=== PATIENT | female | born 1950 | race Caucasian/White ===

== ENCOUNTER 2016-07-20 12:16 | Outpatient (CLI) | payer MEDICARE, MEDICAID | END 2016-07-20 12:17 | disposition home or self-care (01) | DX: M19.071 Primary osteoarthritis, right ankle and foot (principal) ==

== ENCOUNTER 2017-03-14 08:00 | Outpatient (CLI) | payer MEDICARE, MEDICAID | END 2017-03-14 08:01 | disposition home or self-care (01) | LOC: LAB.N 08:00 | PROVIDERS: ATTEND Nurse Practitioner Gerontology | DX: N39.0 Urinary tract infection, site not specified (principal) | CPT/HCPCS: 87086 ==

== ENCOUNTER 2017-05-13 09:37 | Outpatient (CLI) | payer MEDICARE, MEDICAID ==
--- NOTE | 2017-05-13 12:43 | XRAY Report ---
LEFT HIP AND PELVIS: 05/13/2017 COMPARISON: None. INDICATION: Hip pain. TECHNIQUE: Two views of the left hip and pelvis. FINDINGS: There are surgical clips about the pelvis. There are mild hypertrophic changes of the hips without significant joint space narrowing. Normal alignment. No evidence of acute fracture. IMPRESSION: MILD BILATERAL HIP OSTEOARTHRITIS. JOB #: [id number] EXT JOB #: [id number] [facility]
== END 2017-05-13 09:38 | disposition home or self-care (01) ==
LOC: DI.N 09:37
PROVIDERS: ATTEND Nurse Practitioner Gerontology
DX: M16.11 Unilateral primary osteoarthritis, right hip (principal)

== ENCOUNTER 2017-09-30 08:28 | Outpatient (CLI) | payer MEDICARE, MEDICAID ==
[2017-09-30 13:23] LABS: BASOPHILS % (AUTO) 0.7 %; EOSINOPHILS # (AUTO) 0.1 10^3/uL (0.0-0.7); EOSINOPHILS % (AUTO) 1.3 %; LYMPHOCYTES # (AUTO) 1.8 10^3/uL (1.5-3.5); LYMPHOCYTES % (AUTO) 37.4 %; MEAN CORPUSCULAR HEMOGLOBIN 28.3 pg (27.0-31.0); MEAN CORPUSCULAR HGB CONC 33.7 g/dL (32.0-36.0); MEAN PLATELET VOLUME 8.7 fL (7.9-10.8); MONOCYTES # (AUTO) 0.3 10^3/uL (0.0-1.0); MONOCYTES % (AUTO) 6.1 %; NEUTROPHILS # (AUTO) 2.6 10^3/uL (1.5-6.6); NEUTROPHILS % (AUTO) 54.5 %; PLT - PLATELET COUNT 224 10^3/uL (130-450); RED BLOOD COUNT 4.24 10^6/uL (4.20-5.40); RED CELL DISTRIBUTION WIDTH 14.3 % (12.0-15.0); WHITE BLOOD COUNT 4.7 x10^3/uL (4.8-10.8)
[2017-09-30 13:49] LABS: ALBUMIN 4.1 g/dL (3.2-5.5); ALBUMIN/GLOBULIN RATIO 1.3 (1.0-2.2); ALKALINE PHOSPHATASE 73 IU/L (42-121); ALT ALANINE AMINOTRANSFERASE 17 IU/L (10-60); AST ASPARTATE AMINOTRANSFERASE 21 IU/L (10-42); BILIRUBIN,TOTAL 0.3 mg/dL (0.2-1.0); BUN - BLOOD UREA NITROGEN 13 mg/dL (6-20); CALCIUM 8.7 mg/dL (8.5-10.3); CARBON DIOXIDE - CO2 27 mmol/L (21-32); CHLORIDE 103 mmol/L (101-111); CHOL/HDL RATIO 3.2 (<4.4); CHOLESTEROL 167 mg/dL; CREATININE 0.7 mg/dL (0.4-1.0); GFR - MDRD 84 (>89); GLUCOSE 104 mg/dL (70-100); HDL CHOLESTEROL 53 mg/dL; LDL CHOLESTEROL,CALCULATED 85 mg/dL; LDL/HDL RATIO 1.6 (<4.4); SODIUM 138 mmol/L (135-145); TOTAL PROTEIN 7.2 g/dL (6.7-8.2); VLDL CHOLESTEROL 29 mg/dL
== END 2017-09-30 08:29 | disposition home or self-care (01) ==
LOC: LAB.N 08:28
PROVIDERS: ATTEND Nurse Practitioner Gerontology
DX: R03.0 Elevated blood-pressure reading, without diagnosis of hypertension (principal); E78.5 Hyperlipidemia, unspecified
CPT/HCPCS: 36415; 80053; 80061; 83721; 85025

== ENCOUNTER 2017-11-02 16:00 | Outpatient (CLI) | payer MEDICARE, MEDICAID ==
[2017-11-02 18:49] LABS: BILIRUBIN,URINE NEGATIVE (NEGATIVE); GLUCOSE, URINE (UA) NEGATIVE (NEGATIVE); KETONES,URINE (UA) NEGATIVE (NEGATIVE); LEUKOCYTE ESTERASE, URINE SMALL (NEGATIVE); NITRITE,URINE NEGATIVE (NEGATIVE); OCCULT BLOOD,URINE SMALL (NEGATIVE); PROTEIN,URINE NEGATIVE (NEGATIVE); UROBILINOGEN,URINE 0.2 (NORMAL) E.U./dL (NORMAL)
[2017-11-02 19:01] LABS: BACTERIA,URINE Moderate /HPF (None Seen); CLARITY,URINE CLEAR (CLEAR); RBC,URINE 0-5 /HPF (0-5); SQUAMOUS EPITHELIAL CELL,UR FEW Squamous (<= Few)
== END 2017-11-02 16:01 | disposition home or self-care (01) ==
LOC: LAB.R 16:00
PROVIDERS: ATTEND Physician Assistant Medical
DX: N39.0 Urinary tract infection, site not specified (principal); R30.0 Dysuria
CPT/HCPCS: 81001; 87086

== ENCOUNTER 2018-01-05 23:51 | Outpatient (CLI) | payer MEDICARE, MEDICAID ==
[2018-01-05 18:54] LABS: BILIRUBIN,URINE NEGATIVE (NEGATIVE); GLUCOSE, URINE (UA) NEGATIVE (NEGATIVE); KETONES,URINE (UA) TRACE mg/dL (NEGATIVE); LEUKOCYTE ESTERASE, URINE MODERATE (NEGATIVE); NITRITE,URINE NEGATIVE (NEGATIVE); OCCULT BLOOD,URINE MODERATE (NEGATIVE); PH,URINE 5.5 PH (5.0-7.5); PROTEIN,URINE 100 mg/dL (NEGATIVE); UROBILINOGEN,URINE 0.2 (NORMAL) E.U./dL (NORMAL)
[2018-01-05 19:18] LABS: AMORPHOUS SEDIMENT,UR Few /LPF; BACTERIA,URINE Few /HPF (None Seen); CLARITY,URINE CLOUDY (CLEAR); SQUAMOUS EPITHELIAL CELL,UR NONE SEEN (<= Few); WBC CLUMPS,URINE PRESENT
== END 2018-01-05 23:52 | disposition home or self-care (01) ==
LOC: LAB.R 23:51
PROVIDERS: ATTEND Physician Assistant Medical
DX: N30.00 Acute cystitis without hematuria (principal); R30.0 Dysuria
CPT/HCPCS: 81001; 87086; 87181

== ENCOUNTER 2018-08-14 10:01 | Outpatient (CLI) | payer MEDICARE, MEDICAID ==
--- NOTE | 2018-08-15 09:20 | Mammography Report ---
Reason: MAMMOGRAM NOT HIGH RISK SCREENING Procedure Date: 08/14/2018 Accession Number: [id number] / [id number] Procedure: MGN - Screening Mammo Dig Bilat CPT Code: FULL RESULT: EXAM: Screening Mammo Dig Bilat DATE: 08/14/2018 10:26 AM CLINICAL HISTORY: Routine screening. No reported personal or family history of breast cancer. TECHNIQUE: Bilateral CC and MLO views were obtained. COMPARISON: 03/08/2012 through 02/24/2007 FINDINGS: The breasts demonstrate scattered fibroglandular densities bilaterally. Bilateral breasts: There are no suspicious masses, calcifications or areas of distortion. IMPRESSION: Negative examination RECOMMENDATION: Routine annual screening unless otherwise clinically indicated. BI-RADS CATEGORY 1: Negative STANDARD QUALIFYING STATEMENTS: 1. This examination was reviewed with the aid of Computer-Aided Detection (CAD). 2. A negative or benign imaging report should not preclude biopsy if clinically suspicious findings are present. 3. Dense breasts may obscure an underlying neoplasm. 4. This examination was reviewed without the aid of 3D breast imaging (tomosynthesis).
== END 2018-08-14 10:02 | disposition home or self-care (01) ==
LOC: DI.N 10:01
PROVIDERS: ATTEND Nurse Practitioner Gerontology
DX: Z12.31 Encounter for screening mammogram for malignant neoplasm of breast (principal)
CPT/HCPCS: 77067

== ENCOUNTER 2018-08-31 09:20 | Outpatient (CLI) | payer MEDICARE, MEDICAID ==
--- NOTE | 2018-08-31 12:18 | XRAY Report ---
Reason: LEFT HIP PAIN Procedure Date: 08/31/2018 Accession Number: [id number] / [id number] Procedure: XRN - Hip w/Pelvis 2-3V LT CPT Code: FULL RESULT: EXAM: LEFT HIP RADIOGRAPHY EXAM DATE: 08/31/2018 09:48 AM. CLINICAL HISTORY: Left hip pain. COMPARISON: HIP W/PELVIS 2-3V LT 05/13/2017 9:51 AM. TECHNIQUE: 2 views. FINDINGS: Bones: Normal. No fractures or bone lesion. Joints: No dislocation. The hip joint space is moderately narrowed bilaterally, relatively symmetric. Soft Tissues: Surgical clip projecting over the pelvis. IMPRESSION: Degenerative changes. RADIA
== END 2018-08-31 09:21 | disposition home or self-care (01) ==
LOC: DI.N 09:20
PROVIDERS: ATTEND Nurse Practitioner Gerontology
DX: M16.12 Unilateral primary osteoarthritis, left hip (principal)

== ENCOUNTER 2018-11-08 16:25 | Outpatient (CLI) | payer MEDICARE, MEDICAID ==
--- NOTE | 2018-11-09 11:11 | XRAY Report ---
Reason: FOOT JOINT PAIN,RT Procedure Date: 11/08/2018 Accession Number: [id number] / [id number] Procedure: XRN - Foot 3 View RT CPT Code: FULL RESULT: EXAM: RIGHT FOOT RADIOGRAPHY EXAM DATE: 11/08/2018 04:38 PM. CLINICAL HISTORY: Foot joint pain, right. COMPARISON: FOOT 3 VIEW RT 07/20/2016 12:50 PM. TECHNIQUE: 3 views. FINDINGS: Bones: There is mild posterior and inferior calcaneal spurring. The posterior calcaneal spurring has increased with the prior. There is new irregularity involving the articular surface of the distal aspect of the proximal phalanx concerning for fracture. The bones are qualitatively osteopenic; this limits evaluation for underlying fractures or masses. Joints: Normal. No subluxations. Soft Tissues: Normal. No soft tissue swelling. IMPRESSION: First ray phalangeal fracture as described. RADIA The call report notification system was initiated by Dr. Luís Medina at 11:05 AM on 11/09/2018. ADDENDUM: 11/09/18 11:21 hrs. The above call report findings were discussed with Willy Thibodeaux by Dr. Luís Medina at 11:21 AM on 11/09/2018.
== END 2018-11-08 16:26 | disposition home or self-care (01) ==
LOC: DI.N 16:25
PROVIDERS: ATTEND Physician Assistant Medical
DX: S92.911A Unspecified fracture of right toe(s), initial encounter for closed fracture (principal)

== ENCOUNTER 2018-12-26 | Day surgery (SDC) | payer MEDICARE, MEDICAID | END 2018-12-26 22:06 | disposition home or self-care (01) | PROC: 0NSQ04Z Reposition Left Orbit with Internal Fixation Device, Open Approach (ICD-10-PCS; principal; 2018-12-26) | DX: S02.82XB Fracture of other specified skull and facial bones, left side, initial encounter for open fracture (principal); S50.02XA Contusion of left elbow, initial encounter; S60.222A Contusion of left hand, initial encounter; S70.02XA Contusion of left hip, initial encounter; S06.0X0A Concussion without loss of consciousness, initial encounter; S19.9XXA Unspecified injury of neck, initial encounter; S29.9XXA Unspecified injury of thorax, initial encounter; W01.0XXA Fall on same level from slipping, tripping and stumbling without subsequent striking against object, initial encounter; Y93.01 Activity, walking, marching and hiking; Y92.008 Other place in unspecified non-institutional (private) residence as the place of occurrence of the external cause; I10 Essential (primary) hypertension; E78.00 Pure hypercholesterolemia, unspecified; K21.9 Gastro-esophageal reflux disease without esophagitis; Z96.659 Presence of unspecified artificial knee joint; H10.9 Unspecified conjunctivitis; H54.7 Unspecified visual loss; Z79.899 Other long term (current) drug therapy | CPT/HCPCS: 11012; 21406; 36415; 70450; 70486; 71250; 72125; 73080; 73130; 73502; 80053; 83690; 85025; 85610; 90471; 90715; 96365; 96375; 96376; 99285; A9270; J0131; J1170; J7120 ==

== ENCOUNTER 2018-12-26 11:28 | Outpatient (CLI) | payer MEDICARE, MEDICAID | END 2018-12-26 11:29 | disposition critical access hospital (66) | LOC: EMS 11:28 | PROVIDERS: ATTEND Surgery | DX: S01.81XA Laceration without foreign body of other part of head, initial encounter (principal); W10.2XXA Fall (on)(from) incline, initial encounter; Y93.01 Activity, walking, marching and hiking; Y92.481 Parking lot as the place of occurrence of the external cause | CPT/HCPCS: A0425; A0429 ==

== ENCOUNTER 2019-01-12 11:37 | Outpatient (CLI) | payer MEDICARE, MEDICAID ==
--- NOTE | 2019-01-13 17:00 | XRAY Report ---
Reason: L SHOUKDER PAIN Procedure Date: 01/12/2019 Accession Number: [id number] / [id number] Procedure: XRN - Shoulder 3 View LT CPT Code: FULL RESULT: EXAM: LEFT SHOULDER RADIOGRAPHY EXAM DATE: 01/12/2019 11:52 AM. CLINICAL HISTORY: Left shoulder pain after fall. COMPARISON: None. TECHNIQUE: 3 views. FINDINGS: Bones: No acute fracture is demonstrated. Joints: No dislocation or subluxation. There is mild joint space narrowing of the glenohumeral joint with slight spurring inferiorly. There is also joint space narrowing of the acromioclavicular joint with mild-moderate spurring. Soft tissues: No periarticular calcifications. No focal soft tissue swelling. Visualized portions of the lungs are clear. IMPRESSION: 1. No acute osseous or articular abnormality. 2. 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 Mild DJD at the left glenohumeral joint. RADIA
== END 2019-01-12 11:38 | disposition home or self-care (01) ==
LOC: DI.N 11:37
PROVIDERS: ATTEND Family Medicine
DX: M19.012 Primary osteoarthritis, left shoulder (principal)

== ENCOUNTER 2019-01-24 12:43 | Outpatient (CLI) | payer MEDICARE, MEDICAID, OTHER ==
[2019-01-24] MEDS ORDERED: BARIUM SULFATE 148 GM POWDER PO ONE (13:41)
[2019-01-24] MEDS ORDERED: BARIUM SULFATE 176 GM BOTTLE PO ONE (13:42)
--- NOTE | 2019-01-24 16:04 | XRAY Report ---
Reason: DYSPHASIA Procedure Date: 01/24/2019 Accession Number: [id number] / [id number] Procedure: FL - Esophogram CPT Code: FULL RESULT: EXAM: BARIUM ESOPHAGRAM EXAM DATE: 01/24/2019 01:36 PM. CLINICAL HISTORY: Dysphagia. COMPARISONS: None. TECHNIQUE: Routine double contrast esophagram. Fluoroscopy Time: 1 minute 50 seconds. Number of Images: 60. FINDINGS: Swallowing Mechanism: Normal. No tracheal aspiration or penetration. Normal-appearing swallowing mechanics on rapid sequence imaging. Esophageal Motility: Normal peristaltic stripping wave. Mucosa: Normal. No ulcerations or masses. Gastroesophageal Junction: Mild gastroesophageal reflux noted with coughing and Valsalva maneuver involving the distal third and promptly cleared. No significant hiatal hernia. No stricture. Other: None. IMPRESSION: Mild gastroesophageal reflux with maneuvers. Otherwise normal barium swallow. RADIA
== END 2019-01-24 12:44 | disposition home or self-care (01) ==
LOC: DI 12:43
PROVIDERS: ATTEND Surgery
DX: K21.9 Gastro-esophageal reflux disease without esophagitis (principal); R13.10 Dysphagia, unspecified
CPT/HCPCS: 74220; A9270

== ENCOUNTER 2019-02-14 13:48 | Day surgery (SDC) | payer MEDICARE, MEDICAID ==
[2019-02-14] MEDS ORDERED: MIDAZOLAM 2 MG/2 ML VIAL IVP ONE (13:49)
[2019-02-14] MEDS ORDERED: fentaNYL 250 MCG/5 ML VIAL IVP ONE (13:49)
[2019-02-14] MEDS ORDERED: LACTATED RINGERS 1,000 ML IV ONE (14:00)
[2019-02-14] MEDS ORDERED: LIDO GARGLE 30 ML BOTTLE PO ONE (15:20)
[2019-02-14 16:08] VITALS: BP 150/82
== END 2019-02-14 13:49 | disposition home or self-care (01) ==
LOC: SDS 13:48
PROVIDERS: ATTEND Surgery
PROC: 0DB18ZX Excision of Upper Esophagus, Via Natural or Artificial Opening Endoscopic, Diagnostic (ICD-10-PCS; 2019-02-14)
PROC: 0DB38ZX Excision of Lower Esophagus, Via Natural or Artificial Opening Endoscopic, Diagnostic (ICD-10-PCS; principal; 2019-02-14 15:00)
DX: R13.10 Dysphagia, unspecified (principal); R63.4 Abnormal weight loss; I10 Essential (primary) hypertension
CPT/HCPCS: 43239; A9270; J3010; J7120

== ENCOUNTER 2019-08-08 08:00 | Outpatient (CLI) | payer MEDICARE, MEDICAID | END 2019-08-08 23:59 | disposition home or self-care (01) | LOC: LAB.R 08:00 | PROVIDERS: ATTEND Family Medicine | DX: R30.0 Dysuria (principal) | CPT/HCPCS: 87086; 87181 ==

== ENCOUNTER 2019-09-25 07:00 | Outpatient (CLI) | payer MEDICARE, MEDICAID | END 2019-09-25 23:59 | disposition home or self-care (01) | LOC: LAB.R 07:00 | PROVIDERS: ATTEND Family Medicine | DX: R30.0 Dysuria (principal) | CPT/HCPCS: 81002; 87086 ==

== ENCOUNTER 2019-12-06 08:00 | Outpatient (CLI) | payer MEDICARE, MEDICAID | END 2019-12-06 23:59 | disposition home or self-care (01) | LOC: LAB.R 08:00 | PROVIDERS: ATTEND Family Medicine | DX: R30.0 Dysuria (principal) | CPT/HCPCS: 87086 ==

== ENCOUNTER 2020-03-10 10:40 | Outpatient (CLI) | payer MEDICARE, MEDICAID | END 2020-03-10 10:41 | disposition home or self-care (01) | LOC: LAB 10:40 | PROVIDERS: ATTEND Internal Medicine Interventional Cardiology | DX: Z01.812 Encounter for preprocedural laboratory examination (principal); Z20.828 Contact with and (suspected) exposure to other viral communicable diseases; I20.0 Unstable angina ==

== ENCOUNTER 2020-03-24 14:14 | Outpatient (CLI) | payer MEDICARE, MEDICAID | END 2020-03-24 23:59 | disposition home or self-care (01) | LOC: LAB.R 14:14 | PROVIDERS: ATTEND Physician Assistant | DX: N39.0 Urinary tract infection, site not specified (principal) | CPT/HCPCS: 87086; 87181 ==

== ENCOUNTER 2020-04-08 08:00 | Outpatient (CLI) | payer MEDICARE, MEDICAID | END 2020-04-08 23:59 | disposition home or self-care (01) | LOC: LAB.R 08:00 | PROVIDERS: ATTEND Physician Assistant | DX: N39.0 Urinary tract infection, site not specified (principal) | CPT/HCPCS: 87086 ==

== ENCOUNTER 2020-04-16 08:00 | Outpatient (CLI) | payer MEDICARE, MEDICAID | END 2020-04-16 23:59 | disposition home or self-care (01) | LOC: LAB.R 08:00 | PROVIDERS: ATTEND Physician Assistant | DX: N39.0 Urinary tract infection, site not specified (principal) | CPT/HCPCS: 87086 ==

== ENCOUNTER 2020-04-21 11:00 | Outpatient (CLI) | payer MEDICARE, MEDICAID | END 2020-04-21 11:01 | disposition critical access hospital (66) | LOC: EMS 11:00 | PROVIDERS: ATTEND Surgery | DX: M25.551 Pain in right hip (principal); M54.2 Cervicalgia; M54.9 Dorsalgia, unspecified ==

== ENCOUNTER 2020-04-21 11:20 | Observation (INO) | payer MEDICARE, MEDICAID ==
[2020-04-21] MEDS ORDERED: MORPHINE 10 MG/ML VIAL IVP STA (11:39)
[2020-04-21] MEDS ORDERED: LACTATED RINGERS 1,000 ML IV STA (11:41)
[2020-04-21 11:50] LABS: BASOPHILS % (AUTO) 0.9 %; EOSINOPHILS % (AUTO) 0.9 %; HGB - HEMOGLOBIN 11.5 g/dL (12.0-16.0); LYMPHOCYTES # (AUTO) 1.5 10^3/uL (1.5-3.5); LYMPHOCYTES % (AUTO) 32.3 %; MEAN CORPUSCULAR HEMOGLOBIN 29.6 pg (27.0-31.0); MEAN CORPUSCULAR VOLUME 89.9 fL (81.0-99.0); MEAN PLATELET VOLUME 9.7 fL (7.9-10.8); MONOCYTES # (AUTO) 0.3 10^3/uL (0.0-1.0); MONOCYTES % (AUTO) 6.3 %; NEUTROPHILS # (AUTO) 2.7 10^3/uL (1.5-6.6); NEUTROPHILS % (AUTO) 59.2 %; PLT - PLATELET COUNT 230 10^3/uL (130-450); RED BLOOD COUNT 3.88 10^6/uL (4.20-5.40); RED CELL DISTRIBUTION WIDTH 14.1 % (12.0-15.0); WHITE BLOOD COUNT 4.6 x10^3/uL (4.8-10.8)
[2020-04-21] MEDS ORDERED: IOVERSOL 320 100 ML VIAL IVP ONE ×2 (11:53→12:33)
[2020-04-21 11:58] LABS: INR 1.1 (0.8-1.2); PT - PROTHROMBIN TIME 11.8 secs (9.9-12.6)
[2020-04-21 12:03] LABS: ALBUMIN/GLOBULIN RATIO 1.3 (1.0-2.2); BILIRUBIN,TOTAL 0.6 mg/dL (0.2-1.0); CALCIUM 9.2 mg/dL (8.5-10.3); CREATININE 0.7 mg/dL (0.4-1.0); TOTAL PROTEIN 7.2 g/dL (6.7-8.2)
[2020-04-21 12:05] LABS: PARTIAL THROMBOPLASTIN TIME 26.5 secs (24.9-33.3)
--- NOTE | 2020-04-21 12:25 | XRAY Report ---
PROCEDURE: Pelvis 1 View INDICATIONS: trauma, R hip pain TECHNIQUE: 1 view(s) of the pelvis acquired. COMPARISON: Pelvis plain film, 12/26/2018. Correlation is made with the accompanying chest radiogra ph, 04/21/2020. FINDINGS: Bones: No fractures or dislocations. No suspicious bony lesions. Age-appropriate degenerative changes are seen, including involving the lower lumbar spine. Soft tissues: Visualized bowel gas pattern is normal. No suspicious soft tissue calcifications. Th ere is a right-sided sacral stimulator power pack, with the leads seen on the left. There is a centra l pelvis clips seen. IMPRESSION: No displaced fractures can be seen on this single view study. If there is focal tenderness (or other strong clinical concern for a fracture that is not seen on thi s plain film study) then please consider a dedicated CT for further evaluation. Postoperative and degenerative changes are seen. Reviewed by: Jaime Gant MD on 04/21/2020 11:[address] [facility] Approved by: Jaime Gant MD on 04/21/2020 11:[address] [facility] Station ID: [id number]
--- NOTE | 2020-04-21 12:26 | XRAY Report ---
PROCEDURE: Chest 1 View X-Ray INDICATIONS: trauma TECHNIQUE: One view of the chest was acquired. COMPARISON: 01/11/2020. Correlation is made with the accompanying pelvis plain film, 04/21/2020. FINDINGS: Surgical changes and devices: None. Lungs and pleura: On the supine study, no large pneumothorax or large pleural effusions can be seen. No focal infiltrates are detected. Mediastinum: The aorta is prominent and tortuous. The cardiac contours are within normal limits. Bones and chest wall: No suspicious bony lesions. Mild levoconvex scoliotic curvature is seen. Age- appropriate degenerative changes are seen. Overlying soft tissues appear unremarkable. IMPRESSION: Portable chest within normal limits for age. Reviewed by: Jaime Gant MD on 04/21/2020 11:25 AM [facility] Approved by: Jaime Gant MD on 04/21/2020 11:25 AM [facility] Station ID: [id number]
--- NOTE | 2020-04-21 12:46 | CT Report ---
PROCEDURE: HEAD WO INDICATIONS: Head trauma, mod-severe TECHNIQUE: Noncontrast 4.5 mm thick angled axial sections acquired from the foramen magnum to the vertex. For r adiation dose reduction, the following was used: automated exposure control, adjustment of mA and/or kV according to patient size. COMPARISON: Head CT 12/26/2018. FINDINGS: Image quality: Excellent. CSF spaces: Basal cisterns are patent. No extra-axial fluid collections. Ventricles are normal in size and shape. Brain: No midline shift. No intracranial masses or hemorrhage. Navarrete-white matter interface is norm al. Skull and face: Calvarium and visualized facial bones are intact, without suspicious lesions. Left o rbital rim fixation hardware. Sinuses: Visualized sinuses and mastoids are clear. IMPRESSION: No acute intracranial abnormality. Reviewed by: Luis Fernando Chinchilla MD on 04/21/2020 12:45 PM PST Approved by: Luis Fernando Chinchilla MD on 04/21/2020 12:45 PM [facility] Station ID: [id number]
--- NOTE | 2020-04-21 12:50 | CT Report ---
PROCEDURE: CERVICAL SPINE WO INDICATIONS: Neck trauma, midline tenderness TECHNIQUE: Noncontrast 3 mm thick sections acquired from the skull base to the T4 level. Sagittal and coronal r eformats were then constructed. For radiation dose reduction, the following was used: automated exp osure control, adjustment of mA and/or kV according to patient size. COMPARISON: Cervical spine CT 12/26/2018. FINDINGS: Image quality: Excellent. Bones: No fractures or dislocations. Moderate degenerative change in the cervical spine demonstrabl e by disc osteophyte complexes are not significant changed. Visualized superior ribs are intact. Mild sclerosis in the left posterior third rib. Soft tissues: Prevertebral soft tissues are normal in thickness. No paravertebral hematomas. No ap ical pneumothoraces. IMPRESSION: No acute osseous abnormality. Reviewed by: Luis Fernando Chinchilla MD on 04/21/2020 12:48 PM PST Approved by: Luis Fernando Chinchilla MD on 04/21/2020 12:48 PM [facility] Station ID: [id number]
--- NOTE | 2020-04-21 12:52 | CT Report ---
PROCEDURE: Abdomen/Pelvis W INDICATIONS: Abdominal trauma, blunt CONTRAST: IV CONTRAST: Optiray 320 ml: 100 PO CONTRAST: *NO PO CONTRAST TECHNIQUE: After the administration of nonionic contrast, 5 mm thick sections acquired from the diaphragms to th e symphysis. 5 mm thick coronal and sagittal reformats were acquired. For radiation dose reduction, the following was used: automated exposure control, adjustment of mA and/or kV according to patient size. COMPARISON: Prior chest CT 12/26/2018.. FINDINGS: Image quality: Excellent. ABDOMEN: Lung bases: Lung bases are clear. Heart size is normal. Solid organs: Liver and spleen are normal in size and enhancement. Gallbladder has been previously resected Biliary system is non dilated. Pancreas enhances normally. No adrenal nodules. Kidneys d emonstrate normal size and enhancement, without hydronephrosis. Peritoneum and bowel: Bowel loops demonstrate normal wall thickness and caliber. No free fluid or a ir. Nodes and vessels: No retroperitoneal or mesenteric adenopathy by size criteria. Aorta and inferior vena cava are normal in size. Miscellaneous: No ventral hernias. PELVIS: Genitourinary: Bladder wall thickness is normal. Apparent prior hysterectomy. Miscellaneous: No inguinal hernias or adenopathy. Normal appendix right lower quadrant. Bones: No suspicious bony lesions. No vertebral body compression fractures. IMPRESSION: No trauma found, source of abdominal pain after blunt trauma is not found. Prior cholecy stectomy, normal appendix identified. No free fluid throughout the peritoneal space is seen. Prior hy sterectomy. Reviewed by: Dwight Chawla MD on 04/21/2020 12:50 PM PST Approved by: Dwight Chawla MD on 04/21/2020 12:50 PM PST Station ID: [id number]
--- NOTE | 2020-04-21 12:55 | CT Report ---
PROCEDURE: CHEST W INDICATIONS: Chest trauma, blunt, high energy CONTRAST: IV CONTRAST: Optiray 320 ml: 100 PO CONTRAST: *NO PO CONTRAST TECHNIQUE: After the administration of intravenous contrast, 5 mm thick sections acquired from the pulmonary api freeman to the posterior costophrenic angles. 7 mm thick coronal MIP reformats were acquired. For radia tion dose reduction, the following was used: automated exposure control, adjustment of mA and/or kV according to patient size. COMPARISON: None. FINDINGS: Image quality: Excellent. Lungs and pleura: No acute air space opacities. No pleural effusions or pneumothorax. Central and peripheral airways are patent and normal in caliber. Mediastinum: Heart size is normal. No pericardial effusion. No mediastinal or hilar adenopathy by size criteria. Thoracic aorta and central pulmonary arteries are normal in size. Esophagus is pedro l in caliber. No hiatal hernia. Bones and chest wall: No suspicious bony lesions. No vertebral body compression fractures. No axil sammi or supraclavicular adenopathy by size criteria. Thyroid gland appears normal where well seen. Abdomen: Visualized upper abdominal solid organs appear normal. Upper abdominal bowel loops are nor mal in caliber. IMPRESSION: No trauma found. Source of chest pain after blunt trauma is not seen. Reviewed by: Dwight Chawla MD on 04/21/2020 12:53 PM PST Approved by: Dwight Chawla MD on 04/21/2020 12:53 PM PST Station ID: [id number]
[2020-04-21 13:06] LABS: BILIRUBIN,URINE NEGATIVE (NEGATIVE); GLUCOSE, URINE (UA) NEGATIVE (NEGATIVE); KETONES,URINE (UA) NEGATIVE (NEGATIVE); LEUKOCYTE ESTERASE, URINE NEGATIVE (NEGATIVE); NITRITE,URINE NEGATIVE (NEGATIVE); OCCULT BLOOD,URINE TRACE-LYSE (NEGATIVE); PROTEIN,URINE NEGATIVE (NEGATIVE); UROBILINOGEN,URINE 0.2 (NORMAL) E.U./dL (NORMAL)
[2020-04-21 13:07] LABS: CLARITY,URINE CLEAR (CLEAR)
[2020-04-21 13:39] LABS: C. PNEUMONIAE- RESP PCR PANEL NOT DETECTED
[2020-04-21] MEDS ORDERED: SODIUM CHLORIDE FLUSH 0.9% 10 ML SYRINGE IVP PRN (13:46)
[2020-04-21] MEDS ORDERED: oxyCODONE 5 MG TABLET PO PRN (13:46)
[2020-04-21] MEDS ORDERED: ONDANSETRON 4 MG/2 ML VIAL IVP PRN (13:46)
[2020-04-21] MEDS ORDERED: ONDANSETRON ODT 4 MG TABLET TL PRN (13:46)
--- NOTE | 2020-04-21 13:47 | ED Physician Documentation ---
History of Present Illness - Stated complaint Stated Complaint: FALL - Chief complaint Chief Complaint: Trauma Hd/Nk - History obtained from History obtained from: Patient - Additonal information Additional information: 69-year-old woman with past medical history [place] 3 weeks ago on [place] presents with presyncopal episode on treadmill at physical therapy today causing her to lose her balance and fall, hitting head. She also complains of pain to right hip and arm. Where she fell. Denies LOC, and states that she was feeling normal this morning. Denies chest pain, shortness of breath, fevers. Review of Systems Ten Systems: 10 systems reviewed and negative Constitutional: denies: Fever, Chills Cardiac: reports: Other (+dizziness). denies: Chest pain / pressure PD PAST MEDICAL HISTORY - Past Medical History Cardiovascular: Hypertension, High cholesterol Respiratory: None Endocrine/Autoimmune: None GI: GERD - Past Surgical History General: Cholecystectomy Ortho: Knee replacement /SPANISHER: Hysterectomy - Present Medications Home Medications: Ambulatory Orders Medication Instructions Recorded Confirmed Bupropion HCl [Bupropion Xl] 150 mg PO DAILY 12/26/18 02/14/19 Fesoterodine Fumarate [Toviaz] 8 mg PO DAILY 12/26/18 02/14/19 Lovastatin 20 mg PO DAILY PM 12/26/18 02/13/19 Trazodone HCl 100 mg PO DAILY PM 12/26/18 02/13/19 lisinopriL [Lisinopril] 20 mg PO DAILY 12/26/18 02/13/19 - Allergies Allergies/Adverse Reactions: Allergies Allergy/AdvReac Type Severity Reaction Status Date / Time codeine Allergy Nausea Verified 04/21/20 11:33 Penicillins Allergy Nausea Verified 04/21/20 11:33 - Social History Does the pt smoke?: No Smoking Status: Never smoker PD ED PE NORMAL - Vitals Vital signs reviewed: Yes - General General: Alert and oriented X 3 - HEENT HEENT: Atraumatic, PERRL, EOMI, Moist mucous membranes, Dentition benign - Neck Neck: No bony TTP - Cardiac Cardiac: RRR, No murmur, No gallop, No rub - Respiratory Respiratory: No respiratory distress, Clear bilaterally - Abdomen Abdomen: Normal bowel sounds, Soft, Non tender, Non distended - Back Back: Other (discomfort with palpation of thoracic spine) - Derm Derm: Normal color, Warm and dry, Other (old ecchymosis to L elbow) - Extremities Extremities: No deformity, Normal ROM s pain - Neuro Neuro: Alert and oriented X 3 - Psych Psych: Normal mood, Normal affect, Other (anxious appearing) Results - Vitals Vitals: Vital Signs - 24 hr 04/21/20 04/21/20 11:28 12:36 Temperature 36.6 C 36.6 C Heart Rate 68 63 Respiratory 20 20 Rate Blood Pressure 151/82 H 133/68 H O2 Saturation 100 97 Oxygen O2 Source Room air - Labs Labs: Laboratory Tests 04/21/20 04/21/20 04/21/20 11:38 11:38 11:38 WBC 4.6 L RBC 3.88 L Hgb 11.5 L Hct 34.9 L MCV 89.9 MCH 29.6 MCHC 33.0 RDW 14.1 Plt Count 230 MPV 9.7 Neut # (Auto) 2.7 Lymph # (Auto) 1.5 Schley # (Auto) 0.3 Eos # (Auto) 0.0 Baso # (Auto) 0.0 Absolute Nucleated RBC 0.00 Nucleated RBC % 0.0 PT 11.8 INR 1.1 APTT 26.5 Sodium 142 Potassium 4.0 Chloride 106 Carbon Dioxide 26 Anion Gap 10.0 BUN 17 Creatinine 0.7 Estimated GFR (MDRD) 83 L Glucose 110 H Calcium 9.2 Total Bilirubin 0.6 AST 18 ALT 18 Alkaline Phosphatase 79 Troponin I High Sens Total Protein 7.2 Albumin 4.0 Globulin 3.2 Albumin/Globulin Ratio 1.3 Lipase 24 Urine Color Urine Clarity Urine pH Ur Specific Clever Urine Protein Urine Glucose (UA) Urine Ketones Urine Occult Blood Urine Nitrite Urine Bilirubin Urine Urobilinogen Ur Leukocyte Esterase Ur Microscopic Review Urine Culture Comments Nasal Adenovirus (PCR) Nasal B. parapertussis DNA (PCR) Nasal Coronavir 229E PCR Nasal Coronavir HKU1 PCR Nasal Coronavir NL63 PCR Nasal Coronavir OC43 PCR Nasal Enterovir/Rhinovir PCR Nasal Influenza B PCR Nasal Influenza A PCR Nasal Parainfluen 1 PCR Nasal Parainfluen 2 PCR Nasal Parainfluen 3 PCR Nasal Parainfluen 4 PCR Nasal RSV (PCR) Nasal B.pertussis DNA PCR Nasal C.pneumoniae (PCR) Harinder Human Metapneumo PCR Nasal M.pneumoniae (PCR) Nasal SARS-CoV-2 (PCR) Blood Type Antibody Screen 04/21/20 04/21/20 04/21/20 11:38 12:00 12:46 WBC RBC Hgb Hct MCV MCH MCHC RDW Plt Count MPV Neut # (Auto) Lymph # (Auto) Schley # (Auto) Eos # (Auto) Baso # (Auto) Absolute Nucleated RBC Nucleated RBC % PT INR APTT Sodium Potassium Chloride Carbon Dioxide Anion Gap BUN Creatinine Estimated GFR (MDRD) Glucose Calcium Total Bilirubin AST ALT Alkaline Phosphatase Troponin I High Sens 2.7 Total Protein Albumin Globulin Albumin/Globulin Ratio Lipase Urine Color Urine Clarity Urine pH Ur Specific Clever Urine Protein Urine Glucose (UA) Urine Ketones Urine Occult Blood Urine Nitrite Urine Bilirubin Urine Urobilinogen Ur Leukocyte Esterase Ur Microscopic Review Urine Culture Comments Nasal Adenovirus (PCR) NOT DETECTED Nasal B. parapertussis DNA (PCR) NOT DETECTED Nasal Coronavir 229E PCR NOT DETECTED Nasal Coronavir HKU1 PCR NOT DETECTED Nasal Coronavir NL63 PCR NOT DETECTED Nasal Coronavir OC43 PCR NOT DETECTED Nasal Enterovir/Rhinovir PCR NOT DETECTED Nasal Influenza B PCR NOT DETECTED Nasal Influenza A PCR NOT DETECTED Nasal Parainfluen 1 PCR NOT DETECTED Nasal Parainfluen 2 PCR NOT DETECTED Nasal Parainfluen 3 PCR NOT DETECTED Nasal Parainfluen 4 PCR NOT DETECTED Nasal RSV (PCR) NOT DETECTED Nasal B.pertussis DNA PCR NOT DETECTED Nasal C.pneumoniae (PCR) NOT DETECTED Harinder Human Metapneumo PCR NOT DETECTED Nasal M.pneumoniae (PCR) NOT DETECTED Nasal SARS-CoV-2 (PCR) NOT DETECTED Blood Type O POSITIVE Antibody Screen NEGATIVE 04/21/20 12:55 WBC RBC Hgb Hct MCV MCH MCHC RDW Plt Count MPV Neut # (Auto) Lymph # (Auto) Schley # (Auto) Eos # (Auto) Baso # (Auto) Absolute Nucleated RBC Nucleated RBC % PT INR APTT Sodium Potassium Chloride Carbon Dioxide Anion Gap BUN Creatinine Estimated GFR (MDRD) Glucose Calcium Total Bilirubin AST ALT Alkaline Phosphatase Troponin I High Sens Total Protein Albumin Globulin Albumin/Globulin Ratio Lipase Urine Color STRAW Urine Clarity CLEAR Urine pH 7.0 Ur Specific Clever 1.010 Urine Protein NEGATIVE Urine Glucose (UA) NEGATIVE Urine Ketones NEGATIVE Urine Occult Blood TRACE-LYSE Urine Nitrite NEGATIVE Urine Bilirubin NEGATIVE Urine Urobilinogen 0.2 (NORMAL) Ur Leukocyte Esterase NEGATIVE Ur Microscopic Review NOT INDICATED Urine Culture Comments NOT INDICATED Nasal Adenovirus (PCR) Nasal B. parapertussis DNA (PCR) Nasal Coronavir 229E PCR Nasal Coronavir HKU1 PCR Nasal Coronavir NL63 PCR Nasal Coronavir OC43 PCR Nasal Enterovir/Rhinovir PCR Nasal Influenza B PCR Nasal Influenza A PCR Nasal Parainfluen 1 PCR Nasal Parainfluen 2 PCR Nasal Parainfluen 3 PCR Nasal Parainfluen 4 PCR Nasal RSV (PCR) Nasal B.pertussis DNA PCR Nasal C.pneumoniae (PCR) Harinder Human Metapneumo PCR Nasal M.pneumoniae (PCR) Nasal SARS-CoV-2 (PCR) Blood Type Antibody Screen PD MEDICAL DECISION MAKING - ED course ED course: 69-year-old woman with recent [place] presents status post pre-syncopal episode on the treadmill Causing her to fall and hit her head. Traumatic work-up negative in the emergency room, and cardiac work-up also negative. Discussed with hospitalist who recommends observation for presyncopal episode. Patient agreeable. Departure - Departure Disposition: ED Place in Observation Clinical Impression: Lightheadedness, Fall from standing
--- NOTE | 2020-04-21 13:52 | HISTORY & PHYSICAL EXAMINATION ---
History of Present Illness - Admitted From Admitted From:: Home via rehab unit to ER - History Obtained From Records Reviewed: [facility] History obtained from: Patient and Dr. Luo Exam Limitations: None - History of Present Illness HPI Comment/Other: This is a 69-year-old female who had Anginal equivalent 3 weeks ago and is on Brilinta. States she never had a heart attack. She described having dyspnea on exertion. It got to the point that she would wake up in the middle of the night unable to breathe. She did walk around, and the more she walked around the more short of breath she got. There was no chest pain, palpitations, nausea, diaphoresis or left neck pain with this. There is no epigastric pain or any chest pain with this. Back in August of this year she started walking on a regular basis to get exercise with her sister. They were walking up to 2 miles a day at the high school track or school track in [place]. Summer around November or December she began having shortness of breath with exertion to that she could not finish her usual walk. She was seen by her primary care provider. There was a lot of confusion going on in the clinic. She had to see a second primary care provider who referred her for stress test with Dr. Harmon here at our hospital. Stress test was done in February. It seemed to show no acute changes. But then she had a sudden episode of severe shortness of breath. She was taken from here to [facility] where she had a coronary angiogram and a stent 3 weeks ago. She was in cardiopulmonary rehab and was on the t readmill today. While she was on the treadmill she felt dizzy, lost her balance and fell hitting her head. She denies chest pain, palpitations, shortness of breath, diaphoresis, arm pain, jaw pain before it happened. She complains of hip pain and arm pain where she hit them falling on the treadmill. She denies loss of consciousness. Fouke normal this morning. She was put on a C-spine/backboard in the rehab area, transferred to the emergency room. In the emergency room she was evaluated for C-spine injury and had is well is out a pelvis x-ray, chest x-ray, head CT, abdomen pelvis CT, cervical spine CT and chest CT. No fractures, hematoma was found. No acute intracranial abnormality. She was telemetry normal. No arrhythmias. EKG was normal. Troponin high- sensitivity was 2.7. The only other positive chest discomfort that she has had in the past is that of esophageal dysmotility. She was feeling like food was getting stuck in her chest and she had an EGD with possible dilation February 2019. That was done by Dr. Jaime Johnson. She had squamous mucosa with mild inflammation and reactive changes suggestive of reflux. Negative for eosinophilic esophagitis or goblet cell metaplasia. She gets reflux on a regular basis. For 2 years she took Prilosec on a daily basis until "they took me off". She is vague about the treatment for that. That symptomatology is about the same as it always is. Emergency room doctor is asking for observation status on the basis of presyn cope in a patient is over 50 years of age, has previous cardiac history. 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 Small pieces of comminuted bone were removed. Plate put in.) Psych: reports: Anxiety Musculoskeletal: reports: Osteoarthritis (She was injured on the job and ended u p having bilateral knee replacement surgery for osteoarthritis in 2006) Derm: reports: None - Past Surgical History General: reports: Cholecystectomy Ortho: reports: Knee replacement /INSULATION BOARD HEAD SAW OPERATOR: reports: Hysterectomy HEENT: reports: Cataracts - Family & Social History Family History Comment/Other: Mother, father, sister, and brother of all had heart attacks. Mother and sister have diabetes. Her son in a motor vehicl e accident at the age of 26 Living arrangement: At home Living Situation: With family Social History Notes: She has been and . She lives with her 17-year-old grandson. She was raising her grandchild after his son . 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 That is where she injured her knees ended up with a knee replacement and has not worked since 2006. She smoked for a couple of weeks in high school "to be cool" but never took up the habit. She has no history of recreational substance abuse with cocaine, heroin, LSD, speed. - Substance History Use: Uses substance without health or social issues: NONE Dependence: Experiences withdrawal or developed tolerances: NONE - POLST Patient has POLST: No POLST Status: Full Code Meds/Allgy - Home Medications Home Medications: Ambulatory Orders Medication Instructions Recorded Confirmed Bupropion HCl [Bupropion Xl] 150 mg PO DAILY 12/26/18 02/14/19 Trazodone HCl 100 mg PO DAILY PM 12/26/18 02/13/19 Amlodipine Besylate [Norvasc] 2.5 mg PO DAILY 04/21/20 Atorvastatin Calcium 40 mg PO QPM 04/21/20 Lisinopril [Zestril] 40 mg PO DAILY 04/21/20 Metoprolol Tartrate [Lopressor] 12.5 mg PO BID 04/21/20 Nitroglycerin [Nitrostat] 0.4 mg SL Q5MIN PRN 04/21/20 Nystatin Cream [Mycostatin Cream] 1 applic TOP BID 04/21/20 Omeprazole Magnesium 20 mg PO DAILY 04/21/20 Ticagrelor [Brilinta] 90 mg PO BID 04/21/20 - Allergies Allergies/Adverse Reactions: Allergies Allergy/AdvReac Type Severity Reaction Status Date / Time codeine Allergy Nausea Verified 04/21/20 11:33 Penicillins Allergy Nausea Verified 04/21/20 11:33 Review of Systems - Constitutional Constitutional: reports: Other (Fatigue since late this summer. Found to be coronary artery disease and completely resolved by coronary angiography with stent. No diaphoresis, unexpected weight changes.) - Eyes Eyes: reports: Other (She has had her cataracts repaired, but no recent change in vision. No amaurosis. No diplopia.) - Ears, Nose & Throat Ears, Nose & Throat: reports: Other (Mild loss of hearing, but no hearing aids. No allergy complaints, no swallowing complaints, no sore throat) - Cardiovascular Cariovascular: reports: Other (As in history of present illness) - Respiratory Respiratory: reports: Other (Denies cough, congestion, asthma, lung problems at all. She is not described as snoring with apnea.) - Gastrointestinal Gastrointestinal: reports: Other (Intermittent epigastric discomfort that radiates up her chest. This has been going on with her reflux for years. Occasional nausea. No recent change in bowel or bladder habits. No blood in her stool. Never vomited blood.) - Genitourinary Genitourinary: reports: Dysuria (recent tx for UTI done), Other (She has had recent postmenopausal bleeding. She has had a hysterectomy. She saw her doctor who put her on some cream. They told her that if the cream works there is not much else they need to do. If the cream does not work she may need to have other testing such as a Pap and pelvic. She states) - Musculoskeletal Musculoskeletal: reports: Other (Knees are occasionally stiff. Back occasionally hurts. But otherwise she is without chronic musculoskeletal pain.) - Integumentary Integumentary: reports: Other (All negative) - Neurological Neurological: reports: Headache (Headache is daily and with tension and when she is stressed out. That is been for decades), Dizziness (Today only), Memory problems. denies: Focal weakness, Seizures, Incoordination, Slurred speech - Psychiatric Psychiatric: reports: Anxiety. denies: Depression, Suicidal, Delusions, Hallucinations - Endocrine Endocrine: denies: Polyuria, Polydypsia, Polyphagia - Hematologic/Lymphatic Hematologic/Lymphatic: denies: Anemia, Bruising, Petechiae, Blood clots Prior Level of Functionality: Independent female who pays her own bills, cleans her own house, and is able to do her activities of daily living without durable medical equipment. Exam - Vital Signs Reviewed Vital Signs: Yes Vital Signs: Vital Signs x48h Temp Pulse Resp BP Pulse Ox 04/21/20 13:48 53 L 17 134/70 H 99 04/21/20 13:00 36.6 C 64 17 134/70 H 100 04/21/20 12:36 36.6 C 63 20 133/68 H 97 04/21/20 11:28 36.6 C 68 20 151/82 H 100 - Physical Exam General Appearance: positive: No acute distress, Alert, Other (When I initially walk in the room she is near tears, frightened, because she is having severe, sudden, epigastric pain associated with substernal cramping chest pain. She says it feels like a terrible cramp in her chest. There is no radiation, no nausea, no diaphoresis no palpitations. Stat EKG s) Eyes Bilateral: positive: PERRL, EOMI ENT: positive: Pharynx nml Neck: positive: No JVD. negative: Stiff neck, Carotid bruit Respiratory: positive: Chest non-tender, No respiratory distress. negative: Wheezes, Rales, Rhonchi Cardiovascular: positive: Regular rate & rhythm. negative: Systolic murmur, Gallop/S4, Friction rub Peripheral Pulses: positive: 1+ Abdomen: positive: Non-tender, No organomegaly, Nml bowel sounds, No distention Skin: positive: Warm, Dry Extremities: positive: Non-tender, Full ROM, No pedal edema Neurologic/Psychiatric: positive: Oriented x3, CN's nml (2-12), Motor nml, Sens ation nml Conclusion/Plan - Problem List (1) Postural dizziness with near syncope Conclusion/Plan: The patient was exercising on a cardiac treadmill. There were no Arrhythmias. Became dizzy, lightheaded, and fell.There was no loss of consciousness. She may have just had exertional syncope related to exercise. Plan: Observation status Check a second set of enzymes Telemetry Get old records regarding cath and ejection fraction or valvular heart disease (2) Concussion Conclusion/Plan: CT of the head is negative for bleed in a patient who is on Brilinta. Will treat symptoms with Tylenol. Qualifiers: Encounter type: initial encounter Loss of consciousness presence/duration: without LOC Qualified Code(s): S06.0X0A - Concussion without loss of consciousness, initial encounter (3) Depression with anxiety Conclusion/Plan: Patient is on bupropion in the home situation. That will be resumed once medication list is reconciled per pharmacy. (4) Epigastric pain Conclusion/Plan: Sudden onset while she was on MedSurg. Fouke like a huge cramp in her chest that is gradually getting better. Take a little over 5 minutes to go away. In review of her chart she most likely has esophageal dysmotility and esophageal spasm. This is not the presentation of her usual angina. Give GI cocktail. - Lab Results Lab results reviewed: Yes Fish Bones: 04/21/20 11:38 04/21/20 11:38 - Diagnostic Imaging Results Diagnostic Imaging Results: positive: Final report reviewed Diagnostic Imaging Results Comments: All reports from the emergency room with regards to all x-rays and CAT scans were reviewed - EKG Results EKG Interpreted Independently: No EKG Comparison: Unchanged from prior EKG EKG Findings: NSR with inverted T waves in anterolateral leads. Core Measures - Anticipated LOS I expect patient to be DC'd or transferred within 96 hours.: Yes - DVT/VTE - Prophylaxis VTE/DVT Device ordered at admit?: Yes
[2020-04-21] MEDS ORDERED: MORPHINE 2 MG/ML CARPUJECT IVP PRN (16:26)
[2020-04-21] MEDS: ACETAMINOPHEN 325 MG TABLET PO PRN ×2 (16:31→21:12)
[2020-04-21] MEDS: SODIUM CHLORIDE FLUSH 0.9% 10 ML SYRINGE IVP SCH (16:32)
--- NOTE | 2020-04-21 18:01 | PHARMACY PROGRESS NOTE ---
- Best Possible Medication History Admit Date and Time: 04/21/20 1346 Processed by: Pharmacy Medication History completed: Yes Patient Interview: Completed Secondary Source(s): Physician records, Pharmacy records, Insurance records As the person ultimately responsible for medication therapy, providers are able to order a medication from an existing home medication list in [facility] via the "Reconcile Routine" prior to Confirmation of that medication by direct support staff member. Such practice is discouraged except when the physician, in their clinical judgment, deems that a medical need exists for a medication without regard to previous use.
[2020-04-21] MEDS ORDERED: ATORVASTATIN 40 MG TABLET PO SCH (21:00)
[2020-04-21] MEDS ORDERED: TICAGRELOR 90 MG PO SCH (21:00)
[2020-04-21] MEDS ORDERED: traZODone 50 MG TABLET PO SCH (21:00)
[2020-04-21] MEDS ORDERED: NON FORMULARY MED PO SCH (22:00)
[2020-04-22] MEDS: ACETAMINOPHEN 325 MG TABLET PO PRN ×3 (01:43→11:19)
[2020-04-22] MEDS: SODIUM CHLORIDE FLUSH 0.9% 10 ML SYRINGE IVP SCH ×2 (01:48→08:42)
[2020-04-22 08:41] VITALS: BP 110/55
[2020-04-22] MEDS ORDERED: Ticagrelor [Brilinta] 90 MG PO SCH (09:00)
[2020-04-22] MEDS ORDERED: amLODIPine 5 MG TABLET PO SCH (09:00)
[2020-04-22] MEDS ORDERED: ASPIRIN CHEW 81 MG TABLET PO SCH (09:00)
[2020-04-22] MEDS ORDERED: lisinopriL 20 MG TABLET PO SCH (09:00)
[2020-04-22] MEDS ORDERED: buPROPion XL 150 MG TABLET PO SCH (09:00)
--- NOTE | 2020-04-22 09:33 | Discharge Plan ---
Discharge Plan Problem Reviewed?: Yes Disposition: Home, Self Care Condition: Stable Diet: Low Sodium Activity Restrictions: Activity as Tolerated Instruction Topics: ED Fall Dizziness Weakn Balance Health Concerns: You were in Observation status to evaluate for any causes of being lightheaded which may have led to the fall. The CT scan imaging of your head and neck and chest showed no areas of fracture. If you are dizzy, please discuss this with your Cotton Sampler or PCP, since medications may need to be adjusted, or you may need to see ENT specialist. You may resume cardiac rehab. Resume your usual medications. Plan of Treatment: As above. Care Goals: Improvement in symptoms and stabilization are the goals. Assessment: Patient understands, reminders were given in written instructions here. Additional Instructions or Follow Up instructions: Before starting each session of cardiac rehab, the staff should check your standing blood pressure, to make sure it is not too low. Follow-Up Care: [facility] - Cardiac No Smoking: If you smoke, Please STOP! Call for help. Follow-up with: Vikram Harkins DO [Provider Admit Priv/Credential] -
--- NOTE | 2020-04-22 11:35 | DISCHARGE SUMMARY ---
Discharge Summary Admit Date: 04/21/20 Discharge Date: 04/22/20 Discharging Provider: Dr Mickie Menard Primary Care Provider: Dr Vikram Harkins Code Status: Attempt Resuscitation Condition at Discharge: Stable Discharge Disposition: 01 Home, Self Care - HPI History of Present Illness: From the admission H&P of Dr. Yamile Kruger: This is a 69-year-old female who had anginal-equivalent, had stress test then angio and got coronary stenting and is on Brilinta. She describes she never had a heart attack. She described having dyspnea on exertion. It got to the point that she would wake up in the middle of the night unable to breathe. She did walk around, and the more she walked around the more short of breath she got. There was no chest pain, palpitations, nausea, diaphoresis or left neck pain with this. There is no epigastric pain or any chest pain with this. Back in August of this year she started walking on a regular basis to get exercise with her sister, walking up to 2 miles a day at the high school track or school track in [place]. In November or December she began having shortness of breath with exertion so that she could not finish her usual walk. She was seen by her primary care provider. There was a lot of confusion going on in the clinic. She had to see a second primary care provider who referred her for stress test done with Dr. Menard (Equipment Operator) here as an outpatient. Stress test was done in February. Then she had a sudden episode of severe shortness of breath. She was taken from here to [facility] where she had a coronary angiogram and stenting 3 weeks ago. Today, she was attending outpatient cardiac rehab and was walking on the treadmill today. While she was on the treadmill she felt dizzy, tried to stop the treadmill, but instead sped it up, causing her to fall hitting her right- posterior head. She denies having preceding chest pain, palpitations, shortness of breath, diaphoresis, arm pain, jaw pain before it happened. She complains of hip pain and arm pain where she hit them, falling down. She denies loss of consciousness. She was put on a C-spine/backboard in the cardiac rehab area, transferred to the emergency room. In the emergency room she was evaluated for C-spine injury, head injury and had pelvis x-ray, chest x-ray, head CT, abdomen/pelvis CT, cervical spine CT and chest CT. No fractures or hematoma were found. No acute intracranial abnormality. Telemetry had been normal, no arrhythmias. EKG was normal. Troponin high-sensitivity was normal at 2.7. The only other positive chest discomfort that she had in the past is that of esophageal dysmotility. She was feeling like food was getting stuck in her chest and she had an EGD with (possible) dilation February 2019. That was done by Dr. Jaime Johnson. She had squamous mucosa with mild inflammation and reactive changes suggestive of reflux. Negative for eosinophilic esophagitis or goblet cell metaplasia. She gets reflux on a regular basis. For 2 years she took Prilosec on a daily basis until "they took me off". She is vague about the treatment for that. That symptomatology is about the same as it always is. Emergency room doctor is asking for Observation status on the basis of pre syncope in a patient is over 50 years of age, who has previous cardiac history. - HOSPITAL COURSE Hospital Course: (1) Postural dizziness with near syncope The patient was exercising on a cardiac treadmill, became lightheaded, sped up the treadmill speed by mistake and fell. There was no loss of consciousness. Troponins were cycled and were unremarkable. She had no dysrhythmias on telemetry. Orthostatic vital signs were normal done here. The suspicion was that she had an orthostatic drop in blood pressure in cardiac rehab. She was okayed to resume cardiac rehab however there was a new order to have standing blood pressure measured before starting every exercise session. (2) Concussion CT of the head was negative for bleed in a patient who is on Brilinta. She only required Tylenol. 3) Status post insertion of drug-eluting stent into LAD for CAD We received the cath report done 1 month ago, and confirmed that the abnormal stress test in February, resulted in an angiogram and she needed an LAD stent. She was discharged from [facility] on aspirin and Ticagrelor, which we continued here. (3) Depression with anxiety Patient is on Bupropion in the home situation which was continued. (4) Epigastric pain This occurred with sudden onset while she was in Observation. It felt like a "huge cramp in her chest" that gradually got better in 5 minutes. This was most likely her esophageal dysmotility with esophageal spasm and not the presentation of her usual angina. She was kept on her GI medications. - ALLERGIES Allergies/Adverse Reactions: Allergies Allergy/AdvReac Type Severity Reaction Status Date / Time codeine Allergy Nausea Verified 04/21/20 11:33 Penicillins Allergy Nausea Verified 04/21/20 11:33 - MEDICATIONS Home Medications: Ambulatory Orders Medication Instructions Recorded Confirmed Bupropion HCl [Bupropion Xl] 150 mg PO DAILY 12/26/18 04/21/20 Trazodone HCl 100 mg PO DAILY PM 12/26/18 04/21/20 Amlodipine Besylate [Norvasc] 2.5 mg PO DAILY 04/21/20 04/21/20 Aspirin Chewable [[place] 81 mg PO DAILY 04/21/20 04/21/20 Aspirin] Atorvastatin Calcium 40 mg PO QPM 04/21/20 04/21/20 Lisinopril [Zestril] 40 mg PO DAILY 04/21/20 04/21/20 Nitroglycerin [Nitrostat] 0.4 mg SL Q5MIN PRN 04/21/20 04/21/20 Nystatin Cream [Mycostatin Cream] 1 applic TOP BID 04/21/20 04/21/20 Ticagrelor [Brilinta] 90 mg PO BID 04/21/20 04/21/20 - PHYSICAL EXAM AT DISCHARGE General Appearance: positive: No acute distress, Alert Eyes Bilateral: positive: Normal inspection, EOMI ENT: positive: ENT inspection nml, No signs of dehydration Neck: positive: Nml inspection, No JVD Respiratory: positive: No respiratory distress, Breath sounds nml Cardiovascular: positive: Regular rate & rhythm, No murmur Abdomen: positive: Non-tender, No distention Skin: positive: Warm, Dry Extremities: positive: Non-tender, No pedal edema Neurologic/Psychiatric: positive: Oriented x3, Motor nml - LABS Result Diagrams: 04/21/20 11:38 04/21/20 11:38 - DIAGNOSTIC IMAGING Diagnostic Imaging Results: Final report reviewed - FOLLOW UP Follow Up: See PCP and Equipment Operator for routine follow-up. - TIME SPENT Time Spent in Discharge (Minutes): 30
== END 2020-04-22 12:55 | disposition home or self-care (01) ==
LOC: EDUNIT# → ED 11:20 → MS2 13:46
PROVIDERS: ADMIT Specialist; ATTEND Internal Medicine
DX: R55 Syncope and collapse (principal); R42 Dizziness and giddiness; S06.0X0A Concussion without loss of consciousness, initial encounter; W17.89XA Other fall from one level to another, initial encounter; Y93.A1 Activity, exercise machines primarily for cardiorespiratory conditioning; Y92.238 Other place in hospital as the place of occurrence of the external cause; I25.10 Atherosclerotic heart disease of native coronary artery without angina pectoris; Z95.5 Presence of coronary angioplasty implant and graft; R10.13 Epigastric pain; M25.551 Pain in right hip; M79.601 Pain in right arm; F41.8 Other specified anxiety disorders; Z82.49 Family history of ischemic heart disease and other diseases of the circulatory system; R30.0 Dysuria; Z87.440 Personal history of urinary (tract) infections; Z20.828 Contact with and (suspected) exposure to other viral communicable diseases
CPT/HCPCS: 36415; 70450; 71045; 71260; 72125; 72170; 74177; 80053; 81003; 83690; 84484; 85025; 85610; 85730; 86850; 86900; 86901; 87631; 93005; 96374; 99285; A9270; G0378; J7120; Q9967; 0202U; 81001; 87086

== ENCOUNTER 2020-05-14 08:00 | Outpatient (CLI) | payer MEDICARE, MEDICAID | END 2020-05-14 23:59 | disposition home or self-care (01) | LOC: LAB.R 08:00 | PROVIDERS: ATTEND Physician Assistant | DX: N39.0 Urinary tract infection, site not specified (principal) | CPT/HCPCS: 87086 ==

== ENCOUNTER 2020-08-04 07:00 | Outpatient (CLI) | payer MEDICARE, MEDICAID ==
--- NOTE | 2020-08-05 11:12 | XRAY Report ---
PROCEDURE: Hip w/Pelvis 1V RT INDICATIONS: R HIP ARTHRITIS TECHNIQUE: AP pelvis with lateral view(s) of the right hip(s). COMPARISON: CT abdomen/pelvis 04/21/2020. FINDINGS: Bones: No fractures or dislocations but there is asymmetric mild hip joint osteoarthritis slightly g reater on the right than the left.. Pelvic ring appears intact. No suspicious bony lesions. Soft tissues: The visualized bowel gas pattern is normal. No suspicious soft tissue calcifications. An electronic control device overlies the right iliac region, and a electrode lead extends to the l eft paramedian pelvis IMPRESSION: No acute trauma found. Mild bilateral hip joint osteoarthritis, right slightly greater t rolle left. Presumed pain control stimulator control device and lead as noted. Reviewed by: Dwight Chawla MD on 08/05/2020 11:10 AM PST Approved by: Dwight Chawla MD on 08/05/2020 11:10 AM PST Station ID: [id number]
== END 2020-08-04 23:59 | disposition home or self-care (01) ==
LOC: DI.N 07:00
PROVIDERS: ATTEND Physician Assistant Medical
DX: M16.0 Bilateral primary osteoarthritis of hip (principal)

== ENCOUNTER 2020-10-15 13:16 | Outpatient (CLI) | payer MEDICARE, MEDICAID ==
--- NOTE | 2020-10-15 15:40 | XRAY Report ---
PROCEDURE: Hand 3 View LT INDICATIONS: CONTUSION OF L HAND TECHNIQUE: 3 views of the hand(s) acquired. COMPARISON: None FINDINGS: No acute fracture. Diffuse moderate to severe osteoarthritis. Severe first CMC joint degeneration. Se viji triscaphe joint degeneration. Bulky osteophyte formation at the first CMC joint. Chronic ununite d styloid fracture fragment versus loose body. IMPRESSION: No acute fracture. Moderate to severe diffuse osteoarthritis. If the patient's pain or other symptoms persist, consider further evaluation with MRI. Reviewed by: Leon Vicente MD on 10/15/2020 3:38 PM PDT Approved by: Leon Vicente MD on 10/15/2020 3:38 PM PDT Station ID: [id number]
== END 2020-10-15 23:59 | disposition home or self-care (01) ==
LOC: DI.N 13:16
PROVIDERS: ATTEND Nurse Practitioner
DX: M19.041 Primary osteoarthritis, right hand (principal)

== ENCOUNTER 2020-11-04 11:02 | Outpatient (CLI) | payer MEDICARE, MEDICAID | END 2020-11-04 23:59 | disposition home or self-care (01) | LOC: LAB.N 11:02 | PROVIDERS: ATTEND Family Medicine | DX: R39.9 Unspecified symptoms and signs involving the genitourinary system (principal) | CPT/HCPCS: 87086 ==

== ENCOUNTER 2020-11-30 13:05 | Outpatient (CLI) | payer MEDICARE, MEDICAID ==
--- NOTE | 2020-11-30 14:02 | XRAY Report ---
PROCEDURE: Chest 2 View X-Ray INDICATIONS: ACUTE BRONCHITIS TECHNIQUE: 2 view(s) of the chest. COMPARISON: 04/21/2020 FINDINGS: Surgical changes and devices: None. Lungs and pleura: No pleural effusions or pneumothorax. Lungs are clear. Mediastinum: Mediastinal contours are normal. Heart size is normal. Bones and chest wall: No suspicious bony abnormalities. Soft tissues appear unremarkable. IMPRESSION: No evidence acute pulmonary process. Reviewed by: Saul Posada MD on 11/30/2020 1:01 PM [facility] Approved by: Saul Posada MD on 11/30/2020 1:01 PM [facility] Station ID: [id number]
== END 2020-11-30 23:59 | disposition home or self-care (01) ==
LOC: DI.N 13:05
PROVIDERS: ATTEND Physician Assistant Medical
DX: J20.9 Acute bronchitis, unspecified (principal); R05 Cough; Z20.822 Contact with and (suspected) exposure to COVID-19
CPT/HCPCS: 71046; U0004

== ENCOUNTER 2020-12-21 08:00 | Outpatient (CLI) | payer MEDICARE, MEDICAID | END 2020-12-21 23:59 | disposition home or self-care (01) | LOC: LAB.R 08:00 | PROVIDERS: ATTEND Physician Assistant Medical | DX: R30.0 Dysuria (principal) | CPT/HCPCS: 87086 ==

== ENCOUNTER 2021-04-15 08:00 | Outpatient (CLI) | payer MEDICARE, MEDICAID ==
[2021-04-15 12:05] LABS: BASOPHILS # (AUTO) 0.1 10^3/uL (0.0-0.1); BASOPHILS % (AUTO) 0.9 %; EOSINOPHILS # (AUTO) 0.1 10^3/uL (0.0-0.7); EOSINOPHILS % (AUTO) 1.2 %; HCT - HEMATOCRIT 36.5 % (37.0-47.0); HGB - HEMOGLOBIN 11.5 g/dL (12.0-16.0); LYMPHOCYTES # (AUTO) 1.4 10^3/uL (1.5-3.5); LYMPHOCYTES % (AUTO) 21.8 %; MEAN CORPUSCULAR HEMOGLOBIN 27.6 pg (27.0-31.0); MEAN CORPUSCULAR HGB CONC 31.5 g/dL (32.0-36.0); MEAN CORPUSCULAR VOLUME 87.7 fL (81.0-99.0); MONOCYTES # (AUTO) 0.4 10^3/uL (0.0-1.0); MONOCYTES % (AUTO) 6.9 %; NEUTROPHILS # (AUTO) 4.4 10^3/uL (1.5-6.6); NEUTROPHILS % (AUTO) 68.9 %; PLT - PLATELET COUNT 253 10^3/uL (130-450); RED BLOOD COUNT 4.16 10^6/uL (4.20-5.40); RED CELL DISTRIBUTION WIDTH 14.6 % (12.0-15.0); WHITE BLOOD COUNT 6.4 x10^3/uL (4.8-10.8)
[2021-04-15 12:36] LABS: ALBUMIN 4.1 g/dL (3.2-5.5); ALBUMIN/GLOBULIN RATIO 1.3 (1.0-2.2); ALKALINE PHOSPHATASE 84 IU/L (42-121); ALT ALANINE AMINOTRANSFERASE 17 IU/L (10-60); AST ASPARTATE AMINOTRANSFERASE 19 IU/L (10-42); BILIRUBIN,TOTAL 0.5 mg/dL (0.2-1.0); BUN - BLOOD UREA NITROGEN 17 mg/dL (6-20); CALCIUM 9.1 mg/dL (8.5-10.3); CARBON DIOXIDE - CO2 27 mmol/L (21-32); CHLORIDE 105 mmol/L (101-111); CHOL/HDL RATIO 2.5 (<4.4); CHOLESTEROL 141 mg/dL; CREATININE 0.7 mg/dL (0.4-1.0); GFR - MDRD 83 (>89); GLUCOSE 107 mg/dL (70-100); HDL CHOLESTEROL 57 mg/dL; LDL CHOLESTEROL,CALCULATED 66 mg/dL; LDL/HDL RATIO 1.2 (<4.4); SODIUM 143 mmol/L (135-145); TOTAL PROTEIN 7.2 g/dL (6.7-8.2); TRIGLYCERIDES 91 mg/dL; VLDL CHOLESTEROL 18 mg/dL
== END 2021-04-15 23:59 | disposition home or self-care (01) ==
LOC: LAB.WCP 08:00
PROVIDERS: ATTEND Physician Assistant Medical
DX: I25.10 Atherosclerotic heart disease of native coronary artery without angina pectoris (principal); I10 Essential (primary) hypertension
CPT/HCPCS: 36415; 80053; 80061; 83721; 85025

== ENCOUNTER 2021-05-27 11:31 | Outpatient (CLI) | payer MEDICARE, MEDICAID ==
--- NOTE | 2021-05-27 15:02 | XRAY Report ---
PROCEDURE: Pelvis 1 View INDICATIONS: SCIATICA TECHNIQUE: AP view of the pelvis. COMPARISON: August 04, 2020 FINDINGS: BONES/JOINTS: No acute, displaced fracture. Multifocal degenerative change. No widening of the pubic symphysis. The sacroiliac joints are symmetric. The femoral heads are normal ly seated within the acetabulum. SOFT TISSUES: No focal abnormality. A right stimulator device is again demonstrated. IMPRESSION: 1.No acute osseous abnormality of the pelvis. Reviewed by: Marvin Zhong MD on 05/27/2021 3:01 PM PST Approved by: Marvin Zhong MD on 05/27/2021 3:01 PM [facility] Station ID: [id number]
== END 2021-05-27 23:59 | disposition home or self-care (01) ==
LOC: DI.N 11:31
PROVIDERS: ATTEND Nurse Practitioner
DX: M54.30 Sciatica, unspecified side (principal)

== ENCOUNTER 2021-06-19 13:54 | Emergency (ER) | payer MEDICARE, MEDICAID ==
[2021-06-19 14:47] LABS: BASOPHILS % (AUTO) 0.7 %; EOSINOPHILS % (AUTO) 0.7 %; HCT - HEMATOCRIT 37.3 % (37.0-47.0); HGB - HEMOGLOBIN 12.1 g/dL (12.0-16.0); LYMPHOCYTES % (AUTO) 36.4 %; MEAN CORPUSCULAR HEMOGLOBIN 28.2 pg (27.0-31.0); MEAN CORPUSCULAR HGB CONC 32.4 g/dL (32.0-36.0); MEAN CORPUSCULAR VOLUME 86.9 fL (81.0-99.0); MEAN PLATELET VOLUME 9.8 fL (7.9-10.8); MONOCYTES # (AUTO) 0.4 10^3/uL (0.0-1.0); MONOCYTES % (AUTO) 6.6 %; NEUTROPHILS # (AUTO) 3.1 10^3/uL (1.5-6.6); NEUTROPHILS % (AUTO) 55.2 %; PLT - PLATELET COUNT 245 10^3/uL (130-450); RED BLOOD COUNT 4.29 10^6/uL (4.20-5.40); RED CELL DISTRIBUTION WIDTH 13.8 % (12.0-15.0); WHITE BLOOD COUNT 5.6 x10^3/uL (4.8-10.8)
[2021-06-19 14:57] LABS: ALBUMIN 4.1 g/dL (3.2-5.5); ALBUMIN/GLOBULIN RATIO 1.2 (1.0-2.2); BILIRUBIN,TOTAL 0.5 mg/dL (0.2-1.0); CALCIUM 9.1 mg/dL (8.5-10.3); CREATININE 0.7 mg/dL (0.4-1.0); POTASSIUM 3.8 mmol/L (3.5-5.0); TOTAL PROTEIN 7.4 g/dL (6.7-8.2)
--- NOTE | 2021-06-19 15:08 | ED Physician Documentation ---
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 No dyspnea.) Timing - onset during: Sleep, Rest Timing - details: Abrupt onset, Still present, Waxing and waning Quality: Tightness, Aching Location: Substernal Radiation: No: Jaw, Neck, Back Associated symptoms: Shortness of air. No: Nausea, Vomiting, Feeling faint / dizzy, Palpitations, Cough Similar symptoms before: Diagnosis (has had CAD with prior stent placed in single vessel about a year ago, with normal other coronary arteries, per patient.) Recently seen: Clinic (went to [facility] this morning for UTI symptoms and told then of the chest pain as well, and was referred to ER for evaluation. Patient states did not have ECG there.) Review of Systems Constitutional: denies: Fever, Chills Nose: denies: Rhinorrhea / runny nose, Congestion Throat: denies: Sore throat Cardiac: denies: Palpitations, Pedal edema, Calf pain Respiratory: denies: Dyspnea, Cough GI: denies: Nausea, Vomiting, Diarrhea, Bloody / black stool : reports: Dysuria (for couple of days, feeling similar to prior UTIs.), Frequency Musculoskeletal: denies: Neck pain, Back pain Neurologic: denies: Generalized weakness, Near syncope PD PAST MEDICAL HISTORY - Past Medical History Cardiovascular: Hypertension, High cholesterol, [place] (in 2019) Respiratory: None Endocrine/Autoimmune: None GI: GERD 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 Small pieces of comminuted bone were removed. 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 GLOVE CLEANER: Hysterectomy Cardiovascular: Coronary stent HEENT: Cataracts - Present Medications Home Medications: Ambulatory Orders Medication Instructions Recorded Confirmed Trazodone HCl 100 mg PO DAILY PM 12/26/18 04/21/20 buPROPion HCL [Bupropion Xl] 150 mg PO DAILY 12/26/18 04/21/20 Amlodipine Besylate [Norvasc] 2.5 mg PO DAILY 04/21/20 04/21/20 Aspirin Chewable [St Albino 81 mg PO DAILY 04/21/20 04/21/20 Aspirin] Atorvastatin Calcium 40 mg PO QPM 04/21/20 04/21/20 Lisinopril [Zestril] 40 mg PO DAILY 04/21/20 04/21/20 Nitroglycerin [Nitrostat] 0.4 mg SL Q5MIN PRN 04/21/20 04/21/20 Nystatin Cream [Mycostatin Cream] 1 applic TOP BID 04/21/20 04/21/20 Ticagrelor [Brilinta] 90 mg PO BID 04/21/20 04/21/20 Famotidine [Pepcid] 20 mg PO BID 10 Days #20 tablet 06/19/21 Nitrofurantoin [Macrobid] 100 mg PO BID 7 Days #14 cap 06/19/21 Nitroglycerin [Nitrostat] 0.4 mg SL Q5MIN PRN #1 bottle 06/19/21 - Allergies Allergies/Adverse Reactions: Allergies Allergy/AdvReac Type Severity Reaction Status Date / Time codeine Allergy Nausea Verified 06/19/21 14:15 Penicillins Allergy Nausea Verified 06/19/21 14:15 - Social History Does the pt smoke?: No Smoking Status: Never smoker - POLST Patient has POLST: No POLST Status: Full Code PD ED PE NORMAL - Vitals Vital signs reviewed: Yes - General General: Alert and oriented X 3, No acute distress, Well developed/nourished - HEENT HEENT: Moist mucous membranes, Pharynx benign - Neck Neck: Supple, no meningeal sign, No adenopathy - Cardiac Cardiac: RRR, No murmur - Respiratory Respiratory: Clear bilaterally, Other (no chestwall tenderness. ) - Abdomen Abdomen: Soft, Non tender - Derm Derm: Normal color, Warm and dry - Extremities Extremities: No tenderness to palpate, Normal ROM s pain, No edema, No calf tenderness / cord - Neuro Neuro: Alert and oriented X 3, No motor deficit, Normal speech Results - Vitals Vitals: Vital Signs - 24 hr 06/19/21 16:29 Temperature 36.6 C Heart Rate 58 L Respiratory 19 Rate Blood Pressure 148/60 H O2 Saturation 97 Oxygen O2 Source Room air - EKG (time done) 14:02 Rate: Rate (enter#) (52) Rhythm: Sinus bradycardia [place]: Normal Intervals: Normal VA, RBBB QRS: Normal Ischemia: Normal ST segments. No: ST elevation c/w ischemia, ST depression Compare to prior EKG: Unchanged from prior EKG (from 04/21/20) - Labs Labs: Microbiology 06/19/21 15:00 Urine Culture - Preliminary Urine,Clean Catch Laboratory Tests 06/19/21 06/19/21 06/19/21 14:23 14:23 14:23 WBC 5.6 RBC 4.29 Hgb 12.1 Hct 37.3 MCV 86.9 MCH 28.2 MCHC 32.4 RDW 13.8 Plt Count 245 MPV 9.8 Neut # (Auto) 3.1 Lymph # (Auto) 2.0 [place] # (Auto) 0.4 Eos # (Auto) 0.0 Baso # (Auto) 0.0 Absolute Nucleated RBC 0.00 Nucleated RBC % 0.0 Sodium 139 Potassium 3.8 Chloride 103 Carbon Dioxide 25 Anion Gap 11.0 BUN 13 Creatinine 0.7 Estimated GFR (MDRD) 83 L Glucose 104 H Calcium 9.1 Total Bilirubin 0.5 AST 16 ALT 16 Alkaline Phosphatase 86 Troponin I High Sens 3.5 Total Protein 7.4 Albumin 4.1 Globulin 3.3 Albumin/Globulin Ratio 1.2 Lipase 24 Urine Color Urine Clarity Urine pH Ur Specific [place] Urine Protein Urine Glucose (UA) Urine Ketones Urine Occult Blood Urine Nitrite Urine Bilirubin Urine Urobilinogen Ur Leukocyte Esterase Urine RBC Urine WBC Ur Squamous Epith Cells Urine Bacteria Ur Microscopic Review Urine Culture Comments 06/19/21 15:00 WBC RBC Hgb Hct MCV MCH MCHC RDW Plt Count MPV Neut # (Auto) Lymph # (Auto) [place] # (Auto) Eos # (Auto) Baso # (Auto) Absolute Nucleated RBC Nucleated RBC % Sodium Potassium Chloride Carbon Dioxide Anion Gap BUN Creatinine Estimated GFR (MDRD) Glucose Calcium Total Bilirubin AST ALT Alkaline Phosphatase Troponin I High Sens Total Protein Albumin Globulin Albumin/Globulin Ratio Lipase Urine Color YELLOW Urine Clarity HAZY Urine pH 6.0 Ur Specific [place] 1.010 Urine Protein NEGATIVE Urine Glucose (UA) NEGATIVE Urine Ketones NEGATIVE Urine Occult Blood SMALL H Urine Nitrite NEGATIVE Urine Bilirubin NEGATIVE Urine Urobilinogen 0.2 (NORMAL) Ur Leukocyte Esterase SMALL H Urine RBC 6-10 H Urine WBC 11-25 H Ur Squamous Epith Cells NONE SEEN Urine Bacteria Few Ur Microscopic Review INDICATED Urine Culture Comments INDICATED - Rads (name of study) chest xray Radiology: Prelim report reviewed (no acute process), See rad report PD MEDICAL DECISION MAKING - ED course Complexity details: reviewed results, re-evaluated patient (feels better with antacids. ), considered differential (ECG, CXR and Trop are normal after 6-8 hours of chest pain. ), d/w patient Departure - Departure Disposition: Home, Self Care Clinical Impression: Chest discomfort, Normal troponin UTI (urinary tract infection) Qualifiers: Urinary tract infection type: acute cystitis Hematuria presence: without hematuria Qualified Code(s): N30.00 - Acute cystitis without hematuria Clinical Impression: (Ruled Out): Myocardial infarction Condition: Stable Record reviewed to determine appropriate education?: Yes Instructions: ED Chest Pain NonCardiac, ED UTI Cystitis Female Follow-Up: Richelle Ching PA-C [Primary Care Provider] - Mayra Suero MD [Provider Admit Priv/Credential] - Prescriptions: Nitroglycerin [Nitrostat] 0.4 mg SL Q5MIN PRN #1 bottle PRN Reason: Chest Pain Nitrofurantoin [Macrobid] 100 mg PO BID 7 Days #14 cap Famotidine [Pepcid] 20 mg PO BID 10 Days #20 tablet Comments: Your EKG, chest x-ray, blood tests are normal without any's evidence to suggest a heart attack or heart failure, pneumonia, fluid around the lungs or in the lungs. Consideration would be for some reflux or heartburn with inflammation of the esophagus or stomach. I would suggest famotidine twice daily for the next 7 to 10 days. To that add antacids such as Tums, Maalox, Mylanta or similar every 3-4 hours if needed for chest discomfort. Wells food for the next couple of days. Your urine sample is suggestive of an infection and corresponds to your symptoms. We will prescribe nitrofurantoin twice daily for the next week. The urine culture will result in a couple of days and will see if we need to modify the antibiotic choice based on that. We will call you if we need to change things. Recheck if not improved well over the next couple of days and return if worse. Transmitted your prescriptions to [facility] pharmacy in [place]. Discharge Date/Time: 06/19/21 16:30
--- NOTE | 2021-06-19 15:12 | XRAY Report ---
PROCEDURE: Chest 1 View X-Ray INDICATIONS: Chest pain TECHNIQUE: One view of the chest was acquired. COMPARISON: November 30, 2020 FINDINGS: SUPPORT DEVICES: None. LUNGS/PLEURA: No focal consolidation, pleural effusion or space-occupying pneumothorax. MEDIASTINUM: The cardiomediastinal silhouette is within normal limits. BONES/SOFT TISSUES: No acute abnormality. IMPRESSION: 1.No acute cardiopulmonary abnormality. Reviewed by: Marvin Zhong MD on 06/19/2021 3:11 PM [facility] Approved by: Marvin Zhong MD on 06/19/2021 3:11 PM [facility] Station ID: [id number]
[2021-06-19 15:14] LABS: BILIRUBIN,URINE NEGATIVE (NEGATIVE); GLUCOSE, URINE (UA) NEGATIVE (NEGATIVE); KETONES,URINE (UA) NEGATIVE (NEGATIVE); LEUKOCYTE ESTERASE, URINE SMALL (NEGATIVE); NITRITE,URINE NEGATIVE (NEGATIVE); OCCULT BLOOD,URINE SMALL (NEGATIVE); PROTEIN,URINE NEGATIVE (NEGATIVE); UROBILINOGEN,URINE 0.2 (NORMAL) E.U./dL (NORMAL)
[2021-06-19 15:24] LABS: CLARITY,URINE HAZY (CLEAR)
[2021-06-19] MEDS ORDERED: MAG HYDROX/AL HYDROX/SIMETH 30 ML UDC PO STA (15:33)
[2021-06-19] MEDS ORDERED: FAMOTIDINE 20 MG TABLET PO STA (15:33)
[2021-06-19] MEDS ORDERED: NITROFURANTOIN MACRO 100 MG CAPSULE PO STA (15:33)
[2021-06-19 15:36] LABS: SQUAMOUS EPITHELIAL CELL,UR NONE SEEN (<= Few)
[2021-06-19 15:37] LABS: BACTERIA,URINE Few /HPF (None Seen)
[2021-06-19 16:39] VITALS: BP 148/60
== END 2021-06-19 16:30 | disposition home or self-care (01) ==
LOC: ED 13:54
DX: R07.89 Other chest pain (principal); N30.00 Acute cystitis without hematuria
CPT/HCPCS: 36415; 71045; 80053; 81001; 83690; 84484; 85025; 87077; 87086; 87181; 93005; 99284; A9270; 81003

== ENCOUNTER 2021-06-25 08:00 | Outpatient (CLI) | payer MEDICARE, MEDICAID ==
--- NOTE | 2021-06-25 16:12 | Ultrasound Report ---
PROCEDURE: Head or Neck Soft Tissue INDICATIONS: SABACEOUS CYST TECHNIQUE: Real time scanning was performed of the neck region of interest, with image documentation . COMPARISON: None. FINDINGS: No soft tissue neck abnormality seen bilaterally IMPRESSION: No visualized mass is identified at the area of palpable concern. If concern persists, CT is recommen ded. Reviewed by: Radha Vasquez MD on 06/25/2021 4:11 PM PST Approved by: Radha Vasquez MD on 06/25/2021 4:11 PM PST Station ID: [id number]
== END 2021-06-25 08:01 | disposition home or self-care (01) ==
LOC: DI 08:00
PROVIDERS: ATTEND Nurse Practitioner Family
DX: L72.3 Sebaceous cyst (principal)

== ENCOUNTER 2021-08-11 12:54 | Outpatient (CLI) | payer MEDICARE, MEDICAID | END 2021-08-11 23:59 | disposition home or self-care (01) | LOC: LAB.N 12:54 | PROVIDERS: ATTEND Family Medicine | DX: N39.0 Urinary tract infection, site not specified (principal) | CPT/HCPCS: 87077; 87086; 87181 ==

== ENCOUNTER 2021-10-26 11:14 | Outpatient (CLI) | payer MEDICARE, MEDICAID ==
--- NOTE | 2021-10-27 13:49 | Mammography Report ---
BILATERAL DIGITAL SCREENING MAMMOGRAM 3D/2D: 10/26/2021 CLINICAL: Routine screening. Comparison is made to exam dated: 08/14/2018 mammogram - [facility]. The tissue of both breasts is predominantly fatty. No significant masses, calcifications, or other findings are seen in either breast. There has been no significant interval change. IMPRESSION: NEGATIVE There is no mammographic evidence of malignancy. A 1 year screening mammogram is recommended. This exam was interpreted at Station ID: [id number]. NOTE: For mammograms, a report in lay terms will be sent to the patient. Approximately 15% of breast malignancies will not be visualized mammographically. In the management of a palpable breast mass, a negative mammogram must not discourage biopsy of a clinically suspicious lesion. Electronically Signed By: Barbara marquez/wilmer:10/26/2021 14:10:01 ACR BI-RADS Category 1: Negative 3341F PARENCHYMAL PATTERN: (F) - The breast(s) demonstrate(s) diffuse fatty replacement. BI-RADS CATEGORY: (1) - 1 RECOMMENDATION: (ANNUAL) - Recommend routine annual screening mammography. [id number] 1 year screening LATERALITY: (B)
== END 2021-10-26 11:15 | disposition home or self-care (01) ==
LOC: DI.N 11:14
DX: Z12.31 Encounter for screening mammogram for malignant neoplasm of breast (principal)

== ENCOUNTER 2021-11-27 06:34 | Day surgery (SDC) | payer MEDICARE, MEDICAID ==
[2021-11-27] MEDS ORDERED: LACTATED RINGERS 1,000 ML IV ONE (07:00)
--- NOTE | 2021-11-27 07:16 | ANESTHESIA ---
Pre-Anesthesia VS, & Labs - Diagnosis Screening - Procedure Colonoscopy Vital Signs: Temp Pulse Resp BP Pulse Ox 36.7 C 66 12 147/66 H 96 11/27/21 06:55 11/27/21 06:55 11/27/21 06:55 11/27/21 06:55 11/27/21 06:55 Height: 5 ft 3 in Weight (kg): 76.9 kg Body Mass Index: 30.0 BMI Classification: Obese - Is Patient ?: No Home Medications and Allergies Trazodone HCl 100 mg PO DAILY PM 12/26/18 buPROPion HCL [Bupropion Xl] 150 mg PO DAILY 12/26/18 Amlodipine Besylate [Norvasc] 2.5 mg PO DAILY 04/21/20 Aspirin Chewable [St Albino Aspirin] 81 mg PO DAILY 04/21/20 Atorvastatin Calcium 40 mg PO QPM 04/21/20 Nitroglycerin [Nitrostat] 0.4 mg SL Q5MIN PRN 04/21/20 Allergies/Adverse Reactions: Allergies Allergy/AdvReac Type Severity Reaction Status Date / Time codeine Allergy Nausea Verified 06/19/21 14:15 Penicillins Allergy Nausea Verified 06/19/21 14:15 Anes History & Medical History - Anesthetic History Anesthesia Complications: reports: No previous complications Family history of Anesthesia Complications: Denies Family history of Malignant Hyperthermia: Denies - Medical History Cardiovascular: reports: Hypertension, High cholesterol, [place] Pulmonary: reports: None Gastrointestinal: reports: GERD Urinary: reports: None Musculoskeletal: reports: Osteoarthritis Endocrine/Autoimmune: reports: None Skin: reports: None Smoking Status: Never smoker History of Cancer?: No - Surgical History General: reports: Cholecystectomy Eyes Ears Nose Throat (EENT): reports: Cataracts Cardiothoracic: reports: Coronary stent Gynecologic: reports: Hysterectomy Orthopedic: reports: Knee replacement Exam General: Alert, Oriented x3, Cooperative, No acute distress Dental: WNL Mouth Openin Fingerbreadth Neck Mobility: Normal Mallampati classification: II Thyromental Distance: 4-6 cm Respiratory: Lungs clear, Normal breath sounds, No respiratory distress, No accessory muscle use Cardiovascular: Regular rate Neurological: Normal gait Mental/Cognitive Status: Alert/Oriented X3, Normal for patient Cognitive Status: Within normal limits Plan Anesthesia Type: General Consent for Procedure(s) Verified and Reviewed: Yes Code Status: Attempt Resuscitation ASA classification: 3-Severe systemic disease Is this case an emergency?: No
[2021-11-27] MEDS ORDERED: LIDOCAINE-MPF 2% 5 ML VIAL ONE (07:20)
[2021-11-27] MEDS ORDERED: PROPOFOL 500 MG/50 ML 500 MG/50 ML VIAL ONE (07:20)
--- NOTE | 2021-11-27 07:22 | HISTORY & PHYSICAL EXAMINATION ---
Chief Complaint - Chief Complaint Chief Complaint: here for colon cancer screening History of Present Illness - History Obtained From Records Reviewed: yes History obtained from: pt Exam Limitations: none - History of Present Illness HPI Comment/Other: no recent colon cancer screening. 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 Mother and sister have diabetes. Her son in a motor vehicle accident at the age of 26 Living Situation: With family Social History Notes: She has been and . She lives with her 17-year-old grandson. She was raising her grandchild after his son . 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 That is where she injured her knees ended up with a knee replacement and has not worked since 2006. She smoked for a couple of weeks in high school "to be cool" but never took up the habit. She has no history of recreational substance abuse with cocaine, heroin, LSD, speed. - Substance History Use: Uses substance without health or social issues: NONE - POLST Patient has POLST: No POLST Status: Full Code Meds/Allgy - Home Medications Home Medications: Ambulatory Orders Medication Instructions Recorded Confirmed Trazodone HCl 100 mg PO DAILY PM 12/26/18 11/27/21 buPROPion HCL [Bupropion Xl] 150 mg PO DAILY 12/26/18 11/27/21 Amlodipine Besylate [Norvasc] 2.5 mg PO DAILY 04/21/20 11/27/21 Aspirin Chewable [St Albino 81 mg PO DAILY 04/21/20 11/27/21 Aspirin] Atorvastatin Calcium 40 mg PO QPM 04/21/20 11/27/21 Nitroglycerin [Nitrostat] 0.4 mg SL Q5MIN PRN 04/21/20 11/27/21 Famotidine [Pepcid] 20 mg PO BID 10 Days #20 tablet 06/19/21 11/27/21 Nitroglycerin [Nitrostat] 0.4 mg SL Q5MIN PRN #1 bottle 06/19/21 11/27/21 - Allergies Allergies/Adverse Reactions: Allergies Allergy/AdvReac Type Severity Reaction Status Date / Time codeine Allergy Nausea Verified 06/19/21 14:15 Penicillins Allergy Nausea Verified 06/19/21 14:15 Review of Systems - Other Findings Other Findings: 10 pt ros as above otherwise unremarkable Exam - Vital Signs Reviewed Vital Signs: Yes Vital Signs: Vital Signs x48h Temp Pulse Resp BP Pulse Ox 11/27/21 06:55 36.7 C 66 12 147/66 H 96 - Physical Exam General Appearance: positive: No acute distress, Alert Eyes Bilateral: positive: PERRL, EOMI ENT: positive: No signs of dehydration Neck: positive: No JVD, Trachea midline Respiratory: positive: No respiratory distress, Breath sounds nml Cardiovascular: positive: Regular rate & rhythm Abdomen: positive: Non-tender, No distention Neurologic/Psychiatric: positive: Oriented x3 Conclusion/Plan - Problem List (1) Colon cancer screening Conclusion/Plan: plan colonoscopy. parq held and consent obtained
[2021-11-27] MEDS ORDERED: LACTATED RINGERS 600 ML IV ONE (08:03)
[2021-11-27 08:29] VITALS: BP 139/71
--- NOTE | 2021-11-27 12:21 | ANESTHESIA POST OP EVALUATION ---
Anesthesia Post Eval - Post Anesthesia Eval Vitals: Last Vital Signs Temp 36.6 C 11/27/21 08:28 Pulse 63 11/27/21 08:28 Resp 20 11/27/21 08:28 BP 139/71 H 11/27/21 08:28 Pulse Ox 97 11/27/21 08:28 CV Function Including HR & BP: Stable Pain Control: Satisfactory Nausea & Vomiting: Negative Mental Status: Baseline Respiratory Status: Airway Patent Hydration Status: Satisfactory Anesthesia Complications: None
== END 2021-11-27 06:35 | disposition home or self-care (01) ==
LOC: SDS 06:34
PROVIDERS: ATTEND Surgery
PROC: 0DBN8ZZ Excision of Sigmoid Colon, Via Natural or Artificial Opening Endoscopic (ICD-10-PCS; principal; 2021-11-27 07:30)
DX: Z12.11 Encounter for screening for malignant neoplasm of colon (principal); K63.5 Polyp of colon; K57.30 Diverticulosis of large intestine without perforation or abscess without bleeding; E66.9 Obesity, unspecified; Z68.30 Body mass index [BMI] 30.0-30.9, adult; Z87.891 Personal history of nicotine dependence; I25.2 Old myocardial infarction
CPT/HCPCS: 45385; J7120

== ENCOUNTER 2021-12-08 08:00 | Outpatient (CLI) | payer MEDICARE, MEDICAID | END 2021-12-08 23:59 | disposition home or self-care (01) | LOC: LAB.WCP 08:00 | PROVIDERS: ATTEND Physician Assistant Medical | DX: N39.0 Urinary tract infection, site not specified (principal) | CPT/HCPCS: 87086; 87181 ==

== ENCOUNTER 2022-04-06 08:00 | Outpatient (CLI) | payer MEDICARE, MEDICAID | END 2022-04-06 23:59 | disposition home or self-care (01) | LOC: LAB.WCP 08:00 | PROVIDERS: ATTEND Physician Assistant Medical | DX: N39.0 Urinary tract infection, site not specified (principal) | CPT/HCPCS: 87086 ==

== ENCOUNTER 2022-05-12 11:06 | Outpatient (CLI) | payer MEDICARE, MEDICAID ==
[2022-05-12 18:08] LABS: BASOPHILS % (AUTO) 0.9 %; EOSINOPHILS # (AUTO) 0.1 10^3/uL (0.0-0.7); EOSINOPHILS % (AUTO) 1.6 %; HCT - HEMATOCRIT 39.2 % (37.0-47.0); HGB - HEMOGLOBIN 12.1 g/dL (12.0-16.0); LYMPHOCYTES # (AUTO) 1.3 10^3/uL (1.5-3.5); LYMPHOCYTES % (AUTO) 29.4 %; MEAN CORPUSCULAR HEMOGLOBIN 27.3 pg (27.0-31.0); MEAN CORPUSCULAR HGB CONC 30.9 g/dL (32.0-36.0); MEAN CORPUSCULAR VOLUME 88.5 fL (81.0-99.0); MEAN PLATELET VOLUME 10.3 fL (7.9-10.8); MONOCYTES # (AUTO) 0.3 10^3/uL (0.0-1.0); MONOCYTES % (AUTO) 6.6 %; NEUTROPHILS # (AUTO) 2.7 10^3/uL (1.5-6.6); NEUTROPHILS % (AUTO) 61.3 %; PLT - PLATELET COUNT 279 10^3/uL (130-450); RED BLOOD COUNT 4.43 10^6/uL (4.20-5.40); RED CELL DISTRIBUTION WIDTH 14.6 % (12.0-15.0); WHITE BLOOD COUNT 4.4 x10^3/uL (4.8-10.8)
[2022-05-12 18:37] LABS: ALBUMIN/GLOBULIN RATIO 1.3 (1.0-2.2); ALKALINE PHOSPHATASE 92 IU/L (42-121); ALT ALANINE AMINOTRANSFERASE 16 IU/L (10-60); AST ASPARTATE AMINOTRANSFERASE 18 IU/L (10-42); BILIRUBIN,TOTAL 0.5 mg/dL (0.2-1.0); BUN - BLOOD UREA NITROGEN 18 mg/dL (6-20); CALCIUM 8.9 mg/dL (8.5-10.3); CARBON DIOXIDE - CO2 28 mmol/L (21-32); CHLORIDE 104 mmol/L (101-111); CHOL/HDL RATIO 2.2 (<4.4); CHOLESTEROL 121 mg/dL; CREATININE 0.8 mg/dL (0.4-1.0); GFR - MDRD 71 (>89); GLUCOSE 108 mg/dL (70-100); HDL CHOLESTEROL 54 mg/dL; LDL CHOLESTEROL,CALCULATED 53 mg/dL; POTASSIUM 4.1 mmol/L (3.5-5.0); SODIUM 137 mmol/L (135-145); TOTAL PROTEIN 7.2 g/dL (6.7-8.2); TRIGLYCERIDES 72 mg/dL; VLDL CHOLESTEROL 14 mg/dL
== END 2022-05-12 11:07 | disposition home or self-care (01) ==
LOC: LAB.N 11:06
PROVIDERS: ATTEND Physician Assistant Medical
DX: E78.5 Hyperlipidemia, unspecified (principal); D64.9 Anemia, unspecified
CPT/HCPCS: 36415; 80053; 80061; 83721; 85025

== ENCOUNTER 2022-08-12 16:00 | Outpatient (CLI) | payer MEDICARE, MEDICAID | END 2022-08-12 16:15 | disposition home or self-care (01) | LOC: LAB.N 16:00 | PROVIDERS: ATTEND Family Medicine | DX: N39.0 Urinary tract infection, site not specified (principal) | CPT/HCPCS: 87086 ==

== ENCOUNTER 2023-01-04 08:00 | Outpatient (CLI) | payer MEDICARE, MEDICAID ==
[2023-01-04 18:11] LABS: BILIRUBIN,URINE NEGATIVE (NEGATIVE); GLUCOSE, URINE (UA) NEGATIVE (NEGATIVE); KETONES,URINE (UA) NEGATIVE (NEGATIVE); LEUKOCYTE ESTERASE, URINE MODERATE (NEGATIVE); NITRITE,URINE NEGATIVE (NEGATIVE); OCCULT BLOOD,URINE MODERATE (NEGATIVE); PH,URINE 5.5 PH (5.0-7.5); PROTEIN,URINE TRACE mg/dL (NEGATIVE); UROBILINOGEN,URINE 0.2 (NORMAL) E.U./dL (NORMAL)
[2023-01-04 18:14] LABS: CLARITY,URINE CLOUDY (CLEAR)
[2023-01-04 18:41] LABS: BACTERIA,URINE Few /HPF (None Seen); SQUAMOUS EPITHELIAL CELL,UR FEW Squamous (<= Few); WBC,URINE >25 /HPF (0-5)
== END 2023-01-04 23:59 | disposition home or self-care (01) ==
LOC: LAB.WCP 08:00
PROVIDERS: ATTEND Physician Assistant
DX: N39.0 Urinary tract infection, site not specified (principal)
CPT/HCPCS: 81001; 87086

== ENCOUNTER 2023-05-09 08:00 | Outpatient (CLI) | payer MEDICARE, MEDICAID | END 2023-05-09 23:59 | disposition home or self-care (01) | LOC: LAB.WCP 08:00 | PROVIDERS: ATTEND Physician Assistant Medical | DX: N39.0 Urinary tract infection, site not specified (principal) | CPT/HCPCS: 87086; 87181 ==

== ENCOUNTER 2023-06-16 08:00 | Outpatient (CLI) | payer MEDICARE, MEDICAID ==
[2023-06-16 13:48] LABS: BILIRUBIN,URINE NEGATIVE (NEGATIVE); GLUCOSE, URINE (UA) NEGATIVE (NEGATIVE); KETONES,URINE (UA) NEGATIVE (NEGATIVE); LEUKOCYTE ESTERASE, URINE SMALL (NEGATIVE); NITRITE,URINE NEGATIVE (NEGATIVE); OCCULT BLOOD,URINE TRACE-INTA (NEGATIVE); PH,URINE 5.5 PH (5.0-7.5); PROTEIN,URINE NEGATIVE (NEGATIVE); UROBILINOGEN,URINE 0.2 (NORMAL) E.U./dL (NORMAL)
[2023-06-16 13:57] LABS: CLARITY,URINE SL. CLOUDY (CLEAR)
[2023-06-16 14:27] LABS: BACTERIA,URINE Moderate /HPF (None Seen); RBC,URINE 0-5 /HPF (0-5); SQUAMOUS EPITHELIAL CELL,UR MOD Squamous (<= Few)
== END 2023-06-16 23:59 | disposition home or self-care (01) ==
LOC: LAB.WCP 08:00
PROVIDERS: ATTEND Physician Assistant
DX: N39.0 Urinary tract infection, site not specified (principal)
CPT/HCPCS: 81001; 87086

== ENCOUNTER 2023-08-22 06:25 | Day surgery (SDC) | payer MEDICARE, MEDICAID ==
[2023-08-22] MEDS ORDERED: ceFAZolin 2 GM VIAL ONE (06:29)
[2023-08-22] MEDS: LACTATED RINGERS 1,000 ML IV ONE ×2 (06:30→08:17)
[2023-08-22] MEDS ORDERED: MIDAZOLAM 2 MG/2 ML VIAL ONE (07:00)
[2023-08-22] MEDS ORDERED: fentaNYL 100 MCG/2 ML VIAL ONE (07:00)
[2023-08-22] MEDS ORDERED: LIDOCAINE-PF 2% 10 ML AMP SUBQ ONE (07:00)
[2023-08-22] MEDS ORDERED: PROPOFOL 200 MG/20 ML VIAL IVP ONE (07:00)
--- NOTE | 2023-08-22 07:17 | ANESTHESIA ---
Pre-Anesthesia VS, & Labs - Diagnosis misfunction of intersim device - Procedure explantation interstim device @R flank Vital Signs: Temp Pulse Resp BP Pulse Ox O2 Flow Rate 36.6 C 60 15 137/76 H 100 08/22/23 06:30 08/22/23 06:30 08/22/23 06:30 08/22/23 06:30 08/22/23 06:30 Height: 5 ft 3 in Weight (kg): 75.4 kg Body Mass Index: 29.4 BMI Classification: Overweight - NPO >8 hours - Is Patient ?: No - Lab Results Lab results reviewed: Yes Home Medications and Allergies Home Medications: Ambulatory Orders Mirabegron [Myrbetriq] 25 mg PO DAILY 08/15/23 Trazodone HCl 100 mg PO DAILY PM 12/26/18 buPROPion HCL [Bupropion Xl] 150 mg PO DAILY 12/26/18 Amlodipine Besylate [Norvasc] 5 mg PO DAILY 04/21/20 Aspirin Chewable [St Albino Aspirin] 81 mg PO DAILY 04/21/20 Atorvastatin Calcium 40 mg PO QPM 04/21/20 Nitroglycerin [Nitrostat] 0.4 mg SL Q5MIN PRN 04/21/20 Mirabegron [Myrbetriq] 25 mg PO DAILY 08/15/23 Allergies/Adverse Reactions: Allergies Allergy/AdvReac Type Severity Reaction Status Date / Time codeine Allergy Nausea Verified 06/19/21 14:15 Penicillins Allergy Nausea Verified 06/19/21 14:15 Anes History & Medical History - Medical History Cardiovascular: reports: Hypertension, High cholesterol, Coronary artery disease Pulmonary: reports: None Gastrointestinal: reports: Chronic constipation Urinary: reports: Incontinence, Chronic bladder infection Musculoskeletal: reports: Osteoarthritis Endocrine/Autoimmune: reports: None Skin: reports: None Smoking Status: Never smoker - Surgical History General: reports: Cholecystectomy Eyes Ears Nose Throat (EENT): reports: Cataracts Cardiothoracic: reports: Coronary stent Gynecologic: reports: Hysterectomy Orthopedic: reports: Knee replacement Exam General: Alert, Oriented x3 Dental: WNL Mouth Openin Fingerbreadth Neck Mobility: Normal Mallampati classification: III Thyromental Distance: 4-6 cm Respiratory: Lungs clear Cardiovascular: Regular rate Neurological: Normal speech Mental/Cognitive Status: Alert/Oriented X3, Normal for patient Cognitive Status: Within normal limits Plan Anesthesia Type: Total IV Consent for Procedure(s) Verified and Reviewed: Yes Code Status: Attempt Resuscitation ASA classification: 3-Severe systemic disease Is this case an emergency?: No
[2023-08-22] MEDS ORDERED: HYDROmorphone 0.5 MG/0.5 ML SYRINGE IVP PRN (07:18)
[2023-08-22] MEDS ORDERED: METOCLOPRAMIDE 10 MG/2 ML VIAL IVP PRN (07:18)
[2023-08-22] MEDS ORDERED: ePHEDrine 50 MG/ML VIAL IVP PRN (07:18)
[2023-08-22] MEDS ORDERED: ATROPINE ABBOJECT 1 MG/10 ML SYRINGE IVP PRN (07:18)
[2023-08-22] MEDS ORDERED: fentaNYL 100 MCG/2 ML VIAL IVP PRN (07:18)
[2023-08-22] MEDS ORDERED: ONDANSETRON 4 MG/2 ML VIAL IVP PRN ×2 (07:18→08:18)
[2023-08-22] MEDS ORDERED: MORPHINE 2 MG/ML CARPUJECT IVP PRN (07:18)
[2023-08-22] MEDS ORDERED: NALOXONE 0.4 MG/ML VIAL IVP PRN (07:18)
[2023-08-22] MEDS: BUPIVACAINE 0.25% PF 30 ML VIAL SUBQ ONE ×2 (08:00)
[2023-08-22] MEDS ORDERED: LACTATED RINGERS 1,000 ML IV SCH (08:00)
[2023-08-22] MEDS ORDERED: HYDROcod/ACETAM 5/325 MG TABLET PO PRN (08:18)
--- NOTE | 2023-08-22 08:24 | Discharge Plan ---
Discharge Plan Problem Reviewed?: Yes Disposition: Home, Self Care Condition: Good Prescriptions: Docusate Sodium 100Mg Capsule [Colace 100Mg Capsule] 100 mg PO DAILY #7 cap HYDROcod/ACETAM 5/325 [[place] 5/325] 1 tab PO Q4H PRN #10 tablet PRN Reason: Pain Diet: Regular Activity Restrictions: Additional Comments (as instructed) Shower Restrictions: No Driving Restrictions: No Instruction Topics: Incision Care Additional Instructions or Follow Up instructions: You will be contacted for follow-up in 4 to 6 weeks No Smoking: If you smoke, Please STOP! Call for help. Follow-up with: Richelle Ching PA-C [Primary Care Provider] - Mohan Payne MD [Provider Admit Priv/Credential] -
--- NOTE | 2023-08-22 08:28 | OPERATIVE REPORT ---
Operative Report - General Procedure Date: 08/22/23 Planned Procedure: Removal of InterStim device Pre-Op Diagnosis: Malfunction of implanted sacral neuromodulator Procedure Performed: Removal of InterStim device Post Op Diagnosis: Malfunction of implanted sacral neuromodulator - Procedure Note Primary Surgeon: Elmer Anesthesia Provider: ANTHONY Tiwari Anesthesia Technique: Local, MAC Estimated Blood Loss (mL): 1 Findings: Left side lead Right sided generator Complications: none - Other Other Information/Narrative: After informed consent was obtained the patient was brought to the OR and laid in the prone position. Her InterStim was evaluated and was confirmed to be turned off. She was then anesthetized per anesthesia protocols and prepped draped in usual sterile fashion. A timeout was performed reconfirming the patient, procedure and laterality. A mix of half percent Marcaine and 1% lidocaine was used as local overlying her right previous incision in her upper buttock. Local was also instilled into the previous scar on the left caudal side. Using a scalpel an incision was made into the old scar on the right. This was dissected down using combination of sharp and blunt dissection until the generator was identified. It was removed from its pseudocapsule. The lead was cut. We attempted to pull the distal lead outs but it seems fairly stuck and so we made a counterincision in the left caudal prior incision. We used this to gently manipulate the lead and then we were able to pull the lead out en bloc. Spot cautery was used for hemostasis. The wound sites were irrigated with s minnie. The incisions were closed using 3-0 Vicryl suture as a deep dermal stitch and a running 4-0 Monocryl suture as a subcuticular stitch. The incisions were closed with Mastisol and Steri-Strips and gauze and tape. This concluded the procedure the patient tolerated the procedure well. All counts were correct. She will follow-up in 4 to 6 weeks time for postop check
[2023-08-22 08:34] VITALS: O2SAT 97
[2023-08-22 08:54] VITALS: BP 139/69
--- NOTE | 2023-08-22 08:54 | ANESTHESIA POST OP EVALUATION ---
Anesthesia Post Eval - Post Anesthesia Eval Vitals: Last Vital Signs Temp 36.5 C 08/22/23 08:35 Pulse 57 L 08/22/23 08:35 Resp 16 08/22/23 08:35 BP 139/69 H 08/22/23 08:35 Pulse Ox 97 08/22/23 08:35 O2 Flow Rate CV Function Including HR & BP: Stable Pain Control: Satisfactory Nausea & Vomiting: Negative Mental Status: Baseline Respiratory Status: Airway Patent Hydration Status: Satisfactory Anesthesia Complications: None
== END 2023-08-22 06:26 | disposition home or self-care (01) ==
LOC: SDS 06:25
PROVIDERS: ATTEND Urology
DX: T83.110A Breakdown (mechanical) of urinary electronic stimulator device, initial encounter (principal); R32 Unspecified urinary incontinence; I25.10 Atherosclerotic heart disease of native coronary artery without angina pectoris; I10 Essential (primary) hypertension
CPT/HCPCS: 64585; 64595; J7120